=== PATIENT | female | born 1950 | race Caucasian/White ===

== ENCOUNTER 2023-05-14 13:49 | Outpatient (CLI) | payer MEDICARE, SELFPAY ==
--- NOTE | ~2023-05-14 | PE_ITS ---
EXAMINATION: PET skull to mid thigh DATE: 05/14/2023 16:06 INDICATION: Solitary pulmonary nodule. TECHNIQUE: Blood glucose level was 83 mg/dL. 8.868 mCi of 18-fluorodeoxyglucose (18-FDG) was administ ered i.v. Low dose computed tomography (CT) images were acquired from the base of the brain to the pr oximal thighs for attenuation correction and anatomic localization. Automated exposure control was em ployed. Dose-length product (DLP) was 489 mGy-cm. Positron emission tomography (PET) images were acqu ired in the same distribution. COMPARISON: None FINDINGS: Head/neck: There are no pathologically enlarged lymph nodes. There are changes of posterior fusion pr ocedure in cervical spine. Chest: There is moderate emphysema. A calcified left lung nodule and calcified mediastinal lymph node s are consistent with old granulomatous disease. There is a 13 mm nodule in right upper lobe with max imum SUV of 2.2. There are airspace opacities in right upper lobe with mild activity. There is a 14 m m nodule in left upper lobe with maximum SUV of 5.6. No pleural effusion. The heart size is normal. T here are coronary artery calcifications. No pericardial effusion. There is a right internal jugular p ort with tip at superior cavoatrial junction. There is mild chronic anterior wedging of multiple vert ebral bodies. There are healing anterior left rib fractures. Abdomen/pelvis/proximal thighs: Calcifications in the liver consistent with old granulomatous disease . The gallbladder, spleen, pancreas, and right adrenal gland are normal. There is thickening of left adrenal gland without increased activity, likely benign. The kidneys are normal. There are dilated lo ops of bowel. There are bilateral hip arthroplasties. There are no pathologically enlarged lymph node s. There is no ascites. There are changes of vertebroplasty at L1. IMPRESSION: 1. 14 mm nodule in left lung upper lobe with maximum SUV of 5.6, consistent with primary bronchogenic carcinoma. 2. 13 mm nodule in right lung upper lobe with mild activity with surrounding airspace opacities with mild activity. These findings may be malignancy and treatment changes. Correlate with treatment histo ry. Reviewed, dictated and finalized at location A. IMPRESSION: 1. 14 mm nodule in left lung upper lobe with maximum SUV of 5.6, consistent wit h primary bronchogenic carcinoma. 2. 13 mm nodule in right lung upper lobe with mild activity with surrounding ai rspace opacities with mild activity. These findings may be malignancy and treat ment changes. Correlate with treatment history.
[2023-05-14 14:23] LABS: Glucose Point of Care 83 mg/dl (65-105)
== END 2023-05-14 13:50 | disposition home or self-care (01) ==
PROVIDERS: PCP Family Medicine; Visit Provider Internal Medicine Hematology & Oncology
DX: C34.90 Malignant neoplasm of unspecified part of unspecified bronchus or lung (principal); R91.8 Other nonspecific abnormal finding of lung field
CPT/HCPCS: 78815; A9552

== ENCOUNTER 2023-05-22 14:42 | Outpatient (RCR) | payer MEDICARE, SELFPAY ==
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
--- NOTE | 2023-05-22 17:12 | OPREHPOC ---
Outpatient Therapy Plan of Care This is a Multidisciplinary Plan of Care that may contain components documented by all disciplines (PT, OT, and ST.) PT Problem 1 PT Problem #1 Knowledge Deficit PT Goal 1 Goal Pt to be IND with issued HEP Target Visit 8 PT Problem 2 PT Problem #2 Pain PT Goal 1 Goal Pt to report neck and shoulder pain no greater than 5/10 in the last week Target Visit 8 PT Goal 2 Goal Pt to report 50% improvement in overall symptoms Target Visit 8 PT Problem 3 PT Problem #3 Impaired Range of Motion PT Goal 1 Goal Pt to improve manolo shoulder active flexion and abduction ROM to 140 deg Target Visit 8 PT Goal 2 Goal Pt to improve cervical neck motion to 20 deg of total motion between flexion and extension Target Visit 8 PT Problem 4 PT Problem #4 Pain PT Goal 1 Goal Pt to report being able to tolerate being upright/ sitting for 12 hours without needing to lay down d /t pain. Target Visit 8
--- NOTE | 2023-05-26 10:30 | PCPTNOTE ---
Patient called to cancel due to falling this morning.
--- NOTE | 2023-06-01 14:21 | PCPTNOTE ---
Pt's daughter called and cancelled her mothers appt to take her to the MD.
--- NOTE | 2023-06-02 08:36 | PCPTNOTE ---
Patient's daughter states patient has been admitted to hospital and would call back once she is out. Patient's daughter wanted to cancel this weeks appointments due to medical status.
--- NOTE | 2023-06-09 08:56 | PTOPDC ---
Assessment and note entered by Ivan Limon, PT, DPT Evaluation Information Assessment Status Discharge - Pt Not Present Diagnosis cervicalgia, shoulder pain Subjective Information Pt is still admitted to the hospital. A new order will be needed upon discharge if OP therapy services are still indicated. Assessment PT Clinical Summary Pt complete her evaluation on 05/22/23 and has been unable to return to therapy since. She will be discharged at this time d/t a change in medical status.
== END 2023-06-09 10:13 | disposition home or self-care (01) ==
LOC: ANHGOSHPT 14:42
PROVIDERS: PCP Family Medicine; Visit Provider Family Medicine
DX: M54.2 Cervicalgia (principal); M25.519 Pain in unspecified shoulder
CPT/HCPCS: 97014; 97162; 99199; G0283

== ENCOUNTER 2023-06-01 13:23 | Outpatient (CLI) | payer MEDICARE, SELFPAY ==
[2023-06-01 13:37] LABS: Basophils Percent Auto 0.3 % (0.2-1.2); Eosinophils Percent Auto 0.3 % (0-4.4); Hematocrit 32.3 % (37.0-47.0); Hemoglobin 10.8 g/dL (12.0-15.0); Immature Granulocyte Absolute 0.01 K/mm3 (0.00-0.031); Immature Granulocyte Percent A 0.2 % (0-0.5); Lymphocytes Absolute Auto 0.76 K/mm3 (0.9-3.2); Mean Corpuscular HGB Conc 33.4 g/dl (32-36); Mean Corpuscular Hemoglobin 34.2 pg (26-34); Mean Corpuscular Volume 102.2 fl (80-100); Mean Platelet Volume 8.7 fl (7.4-10.4); Monocytes Absolute Auto 0.5 K/mm3 (0.1-0.6); Neutrophils Absolute Auto 4.6 K/mm3 (1.3-6.7); Neutrophils Percent Auto 78.2 % (45.5-73.1); Platelet Count Result 301 k/mm3 (150-375); Red Blood Count 3.16 M/mm3 (4.2-5.4); Red Cell Distribution Width 13.3 % (11.5-14.5); White Blood Count 5.9 K/mm3 (4.5-10.0)
[2023-06-01 13:44] LABS: Blood Urea Nitrogen 20 mg/dL (8-26); Carbon Dioxide 27 mmol/L (22-30); Chloride 98 mmol/L (98-109); Estimated Glomerular Filt Rate > 60; Glucose 73 mg/dL (70-105); Ionized Calcium (POC) 1.11 mmol/L (1.11-1.31); Sodium 139 mmol/L (138-146)
[2023-06-01 13:46] LABS: Potassium 2.4 mmol/L (3.5-4.9)
== END 2023-06-01 13:24 | disposition home or self-care (01) ==
LOC: ANHLAB 13:26
PROVIDERS: PCP Family Medicine; Visit Provider Internal Medicine Hematology & Oncology
DX: C34.90 Malignant neoplasm of unspecified part of unspecified bronchus or lung (principal)
CPT/HCPCS: 36415; 80047; 85025

== ENCOUNTER 2023-06-01 14:25 | Inpatient (IN) | payer MEDICARE, SELFPAY ==
--- NOTE | ~2023-06-01 | CT_ITS ---
EXAMINATION: CT abdomen pelvis w con DATE: 06/02/2023 09:22 INDICATION: Generalized abdominal pain. Diarrhea for 2 days. TECHNIQUE: Computed tomography (CT) of the abdomen and pelvis was performed with 95 CC Omnipaque 350 intravenous contrast. Automated exposure control and iterative reconstruction technique were employed . Exam dose: 282.21 mGy-cm total exam DLP. COMPARISON: 05/14/2023 PET scan FINDINGS: There is minimal discoid atelectasis or scarring at the lung bases. Normal heart size. No pericardial or pleural effusion. No hepatic, splenic, pancreatic or adrenal space-occupying mass lesion is evident. The gallbladder appears unremarkable. No gallbladder wall thickening or pericholecystic fluid or fat stranding. No bile duct or pancreatic duct dilatation. There is extensive calcification but normal caliber of the abdominal aorta and iliac and femoral theresa eliceo. There is probably calcification at the origins of the celiac, superior mesenteric and renal art eries. No intraperitoneal or retroperitoneal or pelvic mass lesion or adenopathy or ascites is noted. There are fluid levels in the small and large bowel and rectum, consistent with clinical history of d iarrhea, suggesting enterocolitis. No bowel obstruction, bowel wall thickening, pneumatosis or intrap eritoneal free air Multiple bilateral renal cysts measuring up to 11 mm. No urinary tract calculus or hydroureteronephrosis is detected. There is limited visualization of the pelvic structures due to extensive streak artifact from bilater al total hip arthroplasty. Old healed rib fractures. Status post vertebroplasty at moderately prominent compression fracture of L1. Multilevel degenerative disease of the lumbar spine, most severe at L2-3 and particularly L4-5 and L5 -S1. Left L4 pars interarticularis defect. Prominent degenerative change at the lumbar apophyseal joints. Old right pubic and right inferior pubic ramus fracture deformities. IMPRESSION: Air-fluid levels of small and large bowel and rectum, consistent with clinical presentat ion of diarrhea, suggesting enterocolitis; no bowel obstruction, bowel wall thickening, pneumatosis o r intraperitoneal free air Bilateral renal cysts Reviewed, dictated and finalized at Location A. Reviewed, dictated and finalized at location L. IMPRESSION: Air-fluid levels of small and large bowel and rectum, consistent w ith clinical presentation of diarrhea, suggesting enterocolitis; no bowel obstr uction, bowel wall thickening, pneumatosis or intraperitoneal free air Bilateral renal cysts
--- NOTE | ~2023-06-01 | XR_ITS ---
EXAMINATION: XR chest 1V portable DATE: 06/01/2023 20:58 INDICATION: Port placement. TECHNIQUE: A single frontal view of the chest was obtained on 2 radiographs. COMPARISON: PET/CT 05/14/2023 FINDINGS: A calcified left lung nodule is consistent with old granulomatous disease. There are airspa ce opacities in right upper lung zone. There are mild airspace opacities in left midlung zone. No ple ural effusion or pneumothorax. The heart size is normal. There is a right internal jugular port with tip in superior vena cava. There is are old healed left rib fractures. There are changes of vertebrop lasty in L1. IMPRESSION: 1. Airspace opacities in right upper lung zone and left midlung zone, which may be treatment changes. Reviewed, dictated and finalized at location E.
[2023-06-01 14:47] VITALS: BP 97/59; PULSE 77; RESP 18; TEMP 36.9; O2SAT 97
[2023-06-01 15:55] LABS: Basophils Percent Auto 0.3 % (0.2-1.2); Eosinophils Absolute Auto 0.1 K/mm3 (0-0.3); Eosinophils Percent Auto 0.9 % (0-4.4); Hematocrit 31.5 % (37.0-47.0); Hemoglobin 10.4 g/dL (12.0-15.0); Immature Granulocyte Absolute 0.02 K/mm3 (0.00-0.031); Immature Granulocyte Percent A 0.3 % (0-0.5); Lymphocytes Absolute Auto 0.86 K/mm3 (0.9-3.2); Mean Corpuscular Hemoglobin 34.1 pg (26-34); Mean Corpuscular Volume 103.3 fl (80-100); Monocytes Absolute Auto 0.6 K/mm3 (0.1-0.6); Monocytes Percent Auto 9.7 % (2.6-8.5); Neutrophils Absolute Auto 4.2 K/mm3 (1.3-6.7); Neutrophils Percent Auto 73.8 % (45.5-73.1); Platelet Count Result 290 k/mm3 (150-375); Red Blood Count 3.05 M/mm3 (4.2-5.4); Red Cell Distribution Width 13.3 % (11.5-14.5); White Blood Count 5.8 K/mm3 (4.5-10.0)
[2023-06-01 16:15] LABS: Alanine Aminotransferase 17 U/L (6-35); Albumin Level 2.9 g/dL (3.5-5.1); Alkaline Phosphatase 87 U/L (38-126); Aspartate Amino Transferase 33 U/L (14-36); Bilirubin,Total 0.2 mg/dL (0.2-1.3); Blood Urea Nitrogen 24 mg/dL (7-17); Carbon Dioxide 31 mmol/L (22-30); Estimated CRCL calculation 49 ml/min; Estimated Glomerular Filt Rate > 60; Glucose 67 mg/dL (65-110); Potassium 2.6 mmol/L (3.4-5.0); Sodium 133 mmol/L (137-145)
--- NOTE | 2023-06-01 16:15 | ECG_ITS ---
Measurements Intervals [place] Rate: 76 P: 85 KS: 153 QRS: 68 QRSD: 90 T: 70 QT: 415 QTc: 467 Interpretive Statements SINUS RHYTHM MILD NONSPECIFIC T-WAVE ABNORMALITY BORDERLINE ECG NO PREVIOUS ECG AVAILABLE FOR COMPARISON Electronically Signed On 06-02-2023 11:56:53 CDT by Bran Wright M.D.
[2023-06-01 16:21] LABS: Anion Gap 3 mmol/L (8-16); Chloride 99 mmol/L (98-107)
[2023-06-01 16:46] LABS: Magnesium 1.7 mg/dL (1.6-2.3)
--- NOTE | 2023-06-01 17:38 | ED.NAVMDI ---
HPI - Nausea/Vomiting/Diarrhea General Chief complaint: Recheck/Abnormal Lab/Rx Stated complaint: abnormal labs Time Seen by Provider: 06/01/23 17:30 History of Present Illness HPI Narrative: Pt presents with diarrhea for a couple of weeks. Pt seen at [facility] a week ago and had CT abd/pelvis and had low potassium them and was reated and discharged. Pt has continued to have diarrhea and had outpatient labs today showing low potassium and was sent to ER. Related Data Allergies Allergy/AdvReac Type Severity Reaction Status Date / Time No Known Allergies Allergy Verified 05/07/23 14:21 Review of Systems Review of Systems: All systems reviewed & are unremarkable except as noted in HPI and below PMFSH Social History Social History Smoking status: Former smoker Exam Const: General: healthy appearing Nutritional Appearance: well nourished Orientation/consciousness: patient oriented x3 Limitations: no limitations Resp: Effort & Inspection: normal respiratory effort Auscultation: clear to auscultation bilaterally Cardio: Rate: regular rate Rhythm: regular rhythm GI: GI Palp: Yes Soft to palpation Auscultation: normal bowel sounds Back/Spine/Pelvis: Back: no CVA tenderness Skin: General skin exam: pallor Rashes: no rashes Wounds: no wounds Neuro: General: patient oriented x3, moves all extremities and no focal motor deficits Cranial nerves: Yes Nystagmus not present Speech: normal speech Extrem: General: normal to inspection and no clubbing, cyanosis or edema Psych: Mental Status: mental status grossly normal Affect: normal affect Attitude: cooperative Course Vital Signs Vital signs: Vital Signs Temperature 98.5 F 06/01/23 14:47 Pulse Rate 77 06/01/23 14:47 Respiratory Rate 18 06/01/23 14:47 Blood Pressure 97/59 L 06/01/23 14:47 Pulse Oximetry 97 06/01/23 14:47 Oxygen Delivery Room Air 06/01/23 14:47 Temperature 97.4 F L 06/01/23 19:04 Pulse Rate 78 06/01/23 19:04 Respiratory Rate 17 06/01/23 19:04 Blood Pressure 112/100 H 06/01/23 19:04 Pulse Oximetry 98 06/01/23 19:04 Oxygen Delivery Room Air 06/01/23 17:42 MDM - Nausea/Vomiting/Diarrhea MDM Narrative Medical decision making narrative: pt presents with diarrhea and low potassium. pt seen at another ER last week and terated and discharged. repeat labs today revealed low potassium and was sent to ER . discussed with Gabriel López agrees to admit Lab Data 06/01/23 15:46 06/01/23 15:45 Labs: Lab Results 06/01/23 06/01/23 Range/Units 15:45 15:46 WBC 5.8 (4.5-10.0) K/mm3 RBC 3.05 L (4.2-5.4) M/mm3 Hgb 10.4 L (12.0-15.0) g/dL Hct 31.5 L (37.0-47.0) % MCV 103.3 H (80-100) fl MCH 34.1 H (26-34) pg MCHC 33.0 (32-36) g/dl RDW 13.3 (11.5-14.5) % Plt Count 290 (150-375) k/mm3 MPV 9.0 (7.4-10.4) fl Immature Gran % (Auto) 0.3 (0-0.5) % Neut % (Auto) 73.8 H (45.5-73.1) % Lymph % (Auto) 15.0 L (18.3-44.2) % Finney % (Auto) 9.7 H (2.6-8.5) % Eos % (Auto) 0.9 (0-4.4) % Baso % (Auto) 0.3 (0.2-1.2) % Lymph # (Auto) 0.86 L (0.9-3.2) K/mm3 Finney # (Auto) 0.6 (0.1-0.6) K/mm3 Eos # (Auto) 0.1 (0-0.3) K/mm3 Baso # (Auto) 0.0 (0.0-0.1) K/mm3 Abs Immat Gran (auto) 0.02 (0.00-0.031) K/mm3 Absolute Neuts (auto) 4.2 (1.3-6.7) K/mm3 Absolute Nucleated RBC 0.0 (0.0-0.012) K/mm3 Nucleated RBC % 0.0 (0.0-0.2) % Sodium 133 L (137-145) mmol/L Potassium 2.6 L* (3.4-5.0) mmol/L Chloride 99 (98-107) mmol/L Carbon Dioxide 31 H (22-30) mmol/L Anion Gap 3 L (8-16) mmol/L BUN 24 H (7-17) mg/dL Creatinine 0.60 L (0.7-1.0) mg/dL Estim Creat Clear Calc 49 ml/min Estimated GFR > 60 (59 - ) Glucose 67 (65-110) mg/dL Calcium 8.0 L (8.4-10.2) mg/dL Magnesium 1.7 (1.6-2.3) mg/dL Total Bilirubin 0.2 (0.2
[2023-06-01 17:42] VITALS: BP 122/67; PULSE 74; RESP 15; O2SAT 96
[2023-06-01] MEDS: KCL 20 MEQ/SW 100 ML 100 ML 50 MEQ IVPB (18:18)
[2023-06-01] MEDS: POTASSIUM CHLORIDE 20 MEQ ER TABLET 40 MEQ PO (18:19)
[2023-06-01] MEDS: SODIUM CHLORIDE 0.9% IV 1,000 ML 999 ML IV CONT (18:26)
--- NOTE | 2023-06-01 18:40 | PM.IMHP ---
H&P: HPI History of Present Illness Date/Time: 06/01/23 18:40 Chief Complaint: nausea and diarrhea Narrative: this is a 73-year-old female patient who recently moved to the area from [facility] to live with her son. Patient reports that she has had about 3-4 weeks persistent diarrhea and nausea. She reports that she has undergone radiation and chemotherapy for cancer that is in her lungs. Patient is a little confused to her past history as she said that she thought that it started somewhere in her abdomen and that after 3 sessions of radiation the abdominal problem could not be found again. Patient reports that today she went to see a new cancer doctor that she cannot recall who it was and they saw that her potassium was low and referred her to the emergency department for admission. Patient reports chills but no known fever. She reports a history of COPD states that she no longer smokes was using a vape instead but now has decided to quit after today. Review of Systems Review of Systems: All systems reviewed & are unremarkable except as noted in HPI and below PMFSH Past Medical History Medical History (Updated 06/01/23 @ 23:23 by Danial López APRN) COPD (chronic obstructive pulmonary disease) Hypertension Lung cancer Social History Social History Smoking status: Former smoker Tobacco type: cigarettes and e-cigarettes/vaping Alcohol intake: never Substance use: never Lack of Transportation: No Lack of Food: Never True Current Housing: I Have Housing Concerned About Future Housing: No Difficulty Paying Gas/Electric Bills: No Difficulty Paying for Meds: No Currently Unemployed: No Education: High School Diploma/GED Difficulty w/ Childcare or Family Care: No Spiritual care concerns: No Meds Home Medications and Allergies Home Medications Medication Instructions Recorded Confirmed Type famotidine 40 mg tablet 40 mg PO DAILY #90 tabs 05/07/23 06/01/23 Rx albuterol sulfate 90 mcg/actuation See Rx Instructions .Route 06/01/23 06/01/23 History aerosol inhaler (Ventolin HFA) .COMPLEX PRN rescue inhaler budesonide-formoterol HFA 160 See Rx Instructions .Route 06/01/23 06/01/23 History mcg-4.5 mcg/actuation aerosol .COMPLEX PRN rescue inhaler inhaler (Symbicort) clonazepam 1 mg tablet 1 mg PO BID 06/01/23 06/01/23 History hydrocodone 7.5 mg-acetaminophen 7.5 - 325 tablet PO Q4-6H 06/01/23 06/01/23 History 325 mg tablet levofloxacin 500 mg tablet 500 mg PO DAILY 06/01/23 06/01/23 History lisinopril 20 mg tablet 20 mg PO DAILY 06/01/23 06/01/23 History loperamide 2 mg capsule 2 mg PO Q4-6H PRN Diarrhea 06/01/23 06/01/23 History metronidazole 500 mg tablet 500 mg PO DAILY 06/01/23 06/01/23 History naloxone 4 mg/actuation nasal spray 4 mg intranasal PRN PRN Opiate 06/01/23 06/01/23 History Reversal ondansetron 4 mg disintegrating 4 mg PO Q4-6H PRN Nausea And 06/01/23 06/01/23 History tablet Vomiting pregabalin 75 mg capsule 75 mg PO BID 06/01/23 06/01/23 History tizanidine 2 mg tablet 2 mg PO BID 06/01/23 06/01/23 History tramadol 50 mg tablet 50 mg PO PRN PRN Pain (Scale Score 06/01/23 06/01/23 History 4-6) Allergies Allergy/AdvReac Type Severity Reaction Status Date / Time No Known Allergies Allergy Verified 05/07/23 14:21 Vital Signs Vital Signs - 24 hr 06/01/23 14:47 06/01/23 17:42 Temperature 36.9 C Pulse Rate 77 74 Respiratory Rate 18 15 Blood Pressure 97/59 L 122/67 Pulse Oximetry 97 96 Oxygen Delivery Room Air Room Air Exam Narrative: GENERAL: Generally well appearing, alert and oriented, in no apparent distress. She is pleasant and conversant in full sentences. HEENT: Pupils are equally round and briskly reactive to light. Extraocular muscles are intact. Oral mucous membranes are moist without lesions. NECK: The patient has no noted JVD. No adenopathy is appreciated. CHES
[2023-06-01] MEDS: ONDANSETRON INJ 4 MG/2 ML VIAL IV PUSH (19:00)
[2023-06-01 19:04] VITALS: BP 112/100; PULSE 78; RESP 17; TEMP 36.3; O2SAT 98
[2023-06-01] MEDS: fentaNYL CITRATE INJ (*CRX) 100 MCG/2 ML VIAL 25 MCG IV PUSH (20:06)
[2023-06-01 20:14] LABS: Influenza A QL RT-PCR Negative (Negative); Influenza B QL RT-PCR Negative (Negative); RSV RNA, RT-PCR Negative (Negative); SARS-CoV-2 RNA PCR Negative (Negative)
[2023-06-01 20:34] LABS: Toxigenic C. Diff NEGATIVE (NEGATIVE)
[2023-06-01] MEDS: SODIUM CHLORIDE 0.9% IV 1,000 ML 125 ML IV CONT (20:40)
[2023-06-01 21:17] VITALS: BP 132/83; PULSE 70; RESP 15; TEMP 36.6; O2SAT 95
--- NOTE | 2023-06-01 21:39 | ADMGEN ---
This patient, Hannah Howard, was admitted to [facility] Surg Room 306-02. Patient/family oriented to hospital policies and general routines including ID bracelet, bed and alarms, visiting hours, pain management, procedures, bathroom and other care routines, personal items, smoking policy, room service/diet, and visiting hours. Information on how to activate the Rapid Response Team has been discussed. Patient/Family are encouraged to report perceived risks to care and to ask questions if they do not understand what they are told or what they should do.
[2023-06-01 21:56] VITALS: BP 140/82; PULSE 75; RESP 20; TEMP 36.7; O2SAT 96; BMI 18.7
[2023-06-01] MEDS: clonazePAM (*CRX) 0.5 MG TABLET 1 MG PO (23:54)
[2023-06-01] MEDS: HYDROcodone/acetaminophen (*CRX) 7.5-325 MG TABLET 1 TAB PO (23:54)
[2023-06-01] MEDS: PREGABALIN (*CRX) 75 MG CAPSULE PO (23:55)
[2023-06-01] MEDS: TIZANIDINE HCL 2 MG TABLET PO (23:55)
[2023-06-01] MEDS: CENTRAL LINE FLUSH 10 ML IV PUSH (23:55)
[2023-06-02] VITALS (8 sets, daily range): BP systolic 90–117; BP diastolic 50–70; PULSE 70–75; RESP 16; TEMP 36.5–36.6; O2SAT 95–97; BMI 18.7
[2023-06-02] MEDS: LOPERAMIDE HCL 2 MG CAPSULE PO ×2 (00:12→04:45)
[2023-06-02] MEDS: KCL 40 MEQ/WATER 100 ML 100 ML 25 ML IVPB (00:12)
[2023-06-02] MEDS: ENOXAPARIN 40 MG/0.4 ML SYRINGE SUB-Q ×2 (01:23→21:07)
[2023-06-02] MEDS: SODIUM CHLORIDE 0.9% IV 1,000 ML 125 ML IV CONT (04:45)
[2023-06-02] MEDS: CENTRAL LINE FLUSH 10 ML IV PUSH ×3 (06:03→21:07)
[2023-06-02 06:12] LABS: Basophils Percent Auto 0.3 % (0.2-1.2); Eosinophils Absolute Auto 0.1 K/mm3 (0-0.3); Eosinophils Percent Auto 1.9 % (0-4.4); Hematocrit 30.4 % (37.0-47.0); Hemoglobin 9.8 g/dL (12.0-15.0); Immature Granulocyte Absolute 0.01 K/mm3 (0.00-0.031); Immature Granulocyte Percent A 0.2 % (0-0.5); Lymphocytes Absolute Auto 0.86 K/mm3 (0.9-3.2); Lymphocytes Percent Auto 14.5 % (18.3-44.2); Mean Corpuscular HGB Conc 32.2 g/dl (32-36); Mean Corpuscular Hemoglobin 33.7 pg (26-34); Mean Corpuscular Volume 104.5 fl (80-100); Mean Platelet Volume 8.9 fl (7.4-10.4); Monocytes Absolute Auto 0.5 K/mm3 (0.1-0.6); Monocytes Percent Auto 9.1 % (2.6-8.5); Neutrophils Absolute Auto 4.4 K/mm3 (1.3-6.7); Platelet Count Result 270 k/mm3 (150-375); Red Blood Count 2.91 M/mm3 (4.2-5.4); Red Cell Distribution Width 13.3 % (11.5-14.5); White Blood Count 5.9 K/mm3 (4.5-10.0)
[2023-06-02 06:24] LABS: Alanine Aminotransferase 15 U/L (6-35); Albumin Level 2.4 g/dL (3.5-5.1); Alkaline Phosphatase 77 U/L (38-126); Anion Gap 5 mmol/L (8-16); Aspartate Amino Transferase 28 U/L (14-36); Bilirubin,Total 0.2 mg/dL (0.2-1.3); Blood Urea Nitrogen 23 mg/dL (7-17); Calcium 7.2 mg/dL (8.4-10.2); Carbon Dioxide 26 mmol/L (22-30); Chloride 105 mmol/L (98-107); Estimated CRCL calculation 51 ml/min; Estimated Glomerular Filt Rate > 60; Glucose 50 mg/dL (65-110); Potassium 3.1 mmol/L (3.4-5.0); Sodium 136 mmol/L (137-145)
[2023-06-02 06:31] LABS: Glucose Point of Care 43 mg/dl (65-105)
[2023-06-02] MEDS: DEXTROSE 50% 25 GM/50 ML SYRINGE IV PUSH (06:37)
[2023-06-02 06:59] LABS: Glucose Point of Care 109 mg/dl (65-105)
[2023-06-02 07:59] LABS: Magnesium 1.6 mg/dL (1.6-2.3)
[2023-06-02] MEDS: clonazePAM (*CRX) 0.5 MG TABLET 1 MG PO ×2 (08:24→17:44)
[2023-06-02] MEDS: POTASSIUM CHLORIDE 20 MEQ ER TABLET 40 MEQ PO ×2 (08:24→21:07)
[2023-06-02] MEDS: TIZANIDINE HCL 2 MG TABLET PO ×2 (08:25→17:44)
[2023-06-02] MEDS: lisinopriL 20 MG TABLET PO (08:25)
[2023-06-02] MEDS: PREGABALIN (*CRX) 75 MG CAPSULE PO ×2 (08:26→17:44)
[2023-06-02] MEDS: FAMOTIDINE 20 MG TABLET 40 MG PO (08:26)
[2023-06-02 09:11] LABS: Folic Acid > 20.0 ng/mL (2.76->20)
[2023-06-02] MEDS: FLUTICASONE/SALMETEROL 115-21 MCG INHALER 1 PUFF 2 PUFF INHALATION ×2 (09:23→20:24)
[2023-06-02] MEDS: MAGNESIUM SULF 2 GM/WATER 50ML 2 GM/50 ML BAG IVPB (09:28)
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
[2023-06-02 13:45] LABS: Magnesium 2.3 mg/dL (1.6-2.3); Potassium 2.8 mmol/L (3.4-5.0)
[2023-06-02] MEDS: POTASSIUM CHLORIDE INJ 40 MEQ in SODIUM CHLORIDE 0.9% IV 500 ML 130 MEQ IVPB (14:36)
[2023-06-02] MEDS: SODIUM CHLORIDE 0.9% IV 1,000 ML 70 ML IV CONT (19:53)
[2023-06-02] MEDS: HYDROcodone/acetaminophen (*CRX) 7.5-325 MG TABLET 1 TAB PO (20:04)
[2023-06-02 20:24] LABS: Potassium 3.4 mmol/L (3.4-5.0)
[2023-06-02 21:07] LABS: IFOB Positive Control Positive; Immunochemical Fecal Occult Bl Negative (N)
[2023-06-03] MEDS: HYDROcodone/acetaminophen (*CRX) 7.5-325 MG TABLET 1 TAB PO (03:30)
[2023-06-03] MEDS: LOPERAMIDE HCL 2 MG CAPSULE PO ×2 (03:31→23:19)
[2023-06-03 06:00] VITALS: BP 141/67; PULSE 75; RESP 18; TEMP 36.3; O2SAT 98
[2023-06-03] MEDS: CENTRAL LINE FLUSH 10 ML IV PUSH ×2 (06:22→13:00)
[2023-06-03 06:29] LABS: Basophils Percent Auto 0.3 % (0.2-1.2); Eosinophils Absolute Auto 0.1 K/mm3 (0-0.3); Eosinophils Percent Auto 1.1 % (0-4.4); Hematocrit 32.6 % (37.0-47.0); Hemoglobin 10.5 g/dL (12.0-15.0); Immature Granulocyte Absolute 0.01 K/mm3 (0.00-0.031); Immature Granulocyte Percent A 0.2 % (0-0.5); Lymphocytes Absolute Auto 0.69 K/mm3 (0.9-3.2); Lymphocytes Percent Auto 10.9 % (18.3-44.2); Mean Corpuscular HGB Conc 32.2 g/dl (32-36); Mean Corpuscular Hemoglobin 34.1 pg (26-34); Mean Corpuscular Volume 105.8 fl (80-100); Mean Platelet Volume 8.9 fl (7.4-10.4); Monocytes Absolute Auto 0.5 K/mm3 (0.1-0.6); Neutrophils Percent Auto 79.5 % (45.5-73.1); Platelet Count Result 295 k/mm3 (150-375); Red Blood Count 3.08 M/mm3 (4.2-5.4); Red Cell Distribution Width 13.8 % (11.5-14.5); White Blood Count 6.3 K/mm3 (4.5-10.0)
[2023-06-03 06:39] LABS: Alanine Aminotransferase 14 U/L (6-35); Albumin Level 2.3 g/dL (3.5-5.1); Alkaline Phosphatase 78 U/L (38-126); Anion Gap 2 mmol/L (8-16); Aspartate Amino Transferase 22 U/L (14-36); Bilirubin,Total 0.1 mg/dL (0.2-1.3); Blood Urea Nitrogen 19 mg/dL (7-17); Calcium 7.4 mg/dL (8.4-10.2); Carbon Dioxide 24 mmol/L (22-30); Chloride 109 mmol/L (98-107); Estimated CRCL calculation 51 ml/min; Estimated Glomerular Filt Rate > 60; Glucose 73 mg/dL (65-110); Potassium 3.4 mmol/L (3.4-5.0); Sodium 135 mmol/L (137-145)
[2023-06-03 07:24] LABS: Platelet Estimate Adequate (Adequate)
[2023-06-03 07:25] LABS: Anisocytosis 1+ (NORMAL); Macrocytosis 1+ (NORMAL); Schistocytes None Seen (NORMAL)
--- NOTE | 2023-06-03 07:51 | P.CDI_ITS ---
CDI Query Clarification Request BMI 18.7 Nutritional Diagnostic Statement Moderate protein calorie malnutrition related to inadequate energy intake as evidenced by patient report of reduced intake for greater than 1 month, -23% wt loss x 1 year. Please refer to the comprehensive nutrition assessment for further information. Please clarify severity of protein calorie malnutrition if known: * Mild * Moderate * Severe * Other/ Unspecified
[2023-06-03] MEDS: FLUTICASONE/SALMETEROL 115-21 MCG INHALER 1 PUFF 2 PUFF INHALATION ×2 (08:30→20:33)
[2023-06-03] MEDS: FAMOTIDINE 20 MG TABLET 40 MG PO (08:37)
[2023-06-03] MEDS: TIZANIDINE HCL 2 MG TABLET PO ×2 (08:37→16:27)
[2023-06-03] MEDS: PREGABALIN (*CRX) 75 MG CAPSULE PO ×2 (08:37→16:27)
[2023-06-03] MEDS: lisinopriL 20 MG TABLET PO (08:37)
[2023-06-03] MEDS: POTASSIUM CHLORIDE 20 MEQ ER TABLET 40 MEQ PO (08:37)
[2023-06-03] MEDS: clonazePAM (*CRX) 0.5 MG TABLET 1 MG PO ×2 (08:37→16:27)
[2023-06-03] MEDS: SODIUM CHLORIDE 0.9% IV 1,000 ML 70 ML IV CONT (10:23)
[2023-06-03] MEDS: ONDANSETRON INJ 4 MG/2 ML VIAL IV PUSH ×2 (10:25→16:34)
[2023-06-03 14:00] VITALS: BP 106/67; PULSE 80; RESP 18; TEMP 36.4; O2SAT 97
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
[2023-06-03] MEDS: METOCLOPRAMIDE HCL INJ 10 MG/2 ML VIAL IV PUSH (15:05)
--- NOTE | 2023-06-03 17:09 | PM.IMPN ---
Progress Note: A&P Assessment and Plan (1) Acute hypokalemia: Code(s): E87.6 - Hypokalemia Status: Acute Assessment and Plan: Potassium was 2.6 on admission. Patient presents with diarrhea so probably the cause. She received IV replacement. Repeat potassium today is 3.4. Continue oral placement. Magnesium level is 2.0. Continue to follow and replace as necessary. (2) Diarrhea: Code(s): R19.7 - Diarrhea, unspecified Status: Acute Assessment and Plan: Patient has had diarrhea for the past 2 weeks. Last colonoscopy 4 years ago was clear. She has a hx of polypectomy. Hx of XRT mostly to the left lung. She was scheduled see GI but was unable to get appointment yet. No recent antibiotics. C diff was negative. CT abdomen pelvis shows air-fluid levels of small and large bowel to the rectum. This is consistent with diarrhea possibly enterocolitis. There is no bowel obstruction, bowel wall thickening, pneumatosis or free air. Stool culture pending. GI consulted and appreciate their input. SLIVF (3) Nausea and vomiting in adult: Code(s): R11.2 - Nausea with vomiting, unspecified Status: Acute Assessment and Plan: Patient with nausea for the past few weeks. Suspect associated with her diarrhea. Nausea comes on with the abdominal cramping. As above (4) Moderate protein-calorie malnutrition: Code(s): E44.0 - Moderate protein-calorie malnutrition Status: Acute Assessment and Plan: Patient with moderate protein calorie malnutrition related to inadequate energy intake as evidenced by patient's reported reduced intake for greater than 1 month and -23% weight loss x1 year. Supplements started. (5) Anxiety: Code(s): F41.9 - Anxiety disorder, unspecified Status: Acute Assessment and Plan: Mood stable. Continue Klonopin. Monitor for over-sedation. (6) Lung cancer: Code(s): C34.90 - Malignant neoplasm of unspecified part of unspecified bronchus or lung Status: Acute Assessment and Plan: Patient has a history of lung cancer. She had treatment in [place] including radiation and chemotherapy. The radiation treatment was mostly to the left lung. Chest x-ray shows right upper lobe and left mid lung field probable radiation changes. PET scan from 05/14/2023 shows 1.4cm nodule left upper lobe and a 1.3 cm nodule in the right upper lobe. These findings may be malignancy and treatment changes. Patient is followed by Dr Govea locally. (7) Hypertension: Code(s): I10 - Essential (primary) hypertension Status: Acute Assessment and Plan: Patient's blood pressure was reviewed on 06/03 Blood pressure remains well controlled. Will continue to monitor (8) COPD (chronic obstructive pulmonary disease): Code(s): J44.9 - Chronic obstructive pulmonary disease, unspecified Status: Acute Assessment and Plan: Stable. No wheezing on exam but has distant breath sounds. Continue Advair. Plan DVT prophylaxis-Lovenox Code status-DNR Subjective Date/time seen: 06/03/23 17:09 Interval history: 73yo female with lung CA, HTN and COPD here for nausea and diarrhea She had BM x3-4 today. Still having liquid stools. No black or red stools. Stools were black early on prior to admission. No CP or SOB. Eating and tolerating it. Has nausea associated with crampy abdominal pain priro to having a BM but no vomiting. Exam Narrative: AF 97.6 106/67 80 18 97% ra Gen - NARD Chest -CTA bilaterally CV - RRR S1/S2 Abd - Soft, NT/ND, Positive BS Ext - no pedal edema Psych - Nml mood and affect Skin - Warm and dry Objective Data Vital Signs Vital Signs: Vital Signs - 24 hr 06/02/23 20:25 06/02/23 19:50 06/02/23 22:00 Temperature 97.9 F Pulse Rate 75 Respiratory Rate 16 Blood Pressure 109/62 Pulse Oximetry 97 96 Oxygen Delivery Room Air Room
[2023-06-03] MEDS: ENOXAPARIN 40 MG/0.4 ML SYRINGE SUB-Q (20:22)
[2023-06-03 22:00] VITALS: BP 106/74; PULSE 74; RESP 18; TEMP 36.1; O2SAT 97
[2023-06-04] MEDS: traMADol HCL (*CRX) 50 MG TABLET PO (02:16)
[2023-06-04] MEDS: LOPERAMIDE HCL 2 MG CAPSULE PO (05:24)
[2023-06-04] MEDS: ONDANSETRON INJ 4 MG/2 ML VIAL IV PUSH ×3 (05:24→21:19)
[2023-06-04] MEDS: CENTRAL LINE FLUSH 10 ML IV PUSH ×3 (05:25→21:21)
[2023-06-04 06:00] VITALS: BP 128/77; PULSE 75; RESP 14; TEMP 35.7; O2SAT 96
[2023-06-04 06:05] LABS: Basophils Percent Auto 0.2 % (0.2-1.2); Eosinophils Absolute Auto 0.1 K/mm3 (0-0.3); Eosinophils Percent Auto 0.9 % (0-4.4); Hematocrit 30.4 % (37.0-47.0); Hemoglobin 9.8 g/dL (12.0-15.0); Immature Granulocyte Absolute 0.02 K/mm3 (0.00-0.031); Immature Granulocyte Percent A 0.4 % (0-0.5); Lymphocytes Absolute Auto 0.81 K/mm3 (0.9-3.2); Lymphocytes Percent Auto 14.7 % (18.3-44.2); Mean Corpuscular HGB Conc 32.2 g/dl (32-36); Mean Corpuscular Hemoglobin 33.8 pg (26-34); Mean Corpuscular Volume 104.8 fl (80-100); Mean Platelet Volume 8.8 fl (7.4-10.4); Monocytes Absolute Auto 0.5 K/mm3 (0.1-0.6); Monocytes Percent Auto 8.9 % (2.6-8.5); Neutrophils Absolute Auto 4.1 K/mm3 (1.3-6.7); Neutrophils Percent Auto 74.9 % (45.5-73.1); Platelet Count Result 242 k/mm3 (150-375); Red Cell Distribution Width 13.4 % (11.5-14.5); White Blood Count 5.5 K/mm3 (4.5-10.0)
[2023-06-04 06:19] LABS: Alanine Aminotransferase 13 U/L (6-35); Albumin Level 2.1 g/dL (3.5-5.1); Alkaline Phosphatase 74 U/L (38-126); Anion Gap 3 mmol/L (8-16); Aspartate Amino Transferase 23 U/L (14-36); Bilirubin,Total < 0.1 mg/dL (0.2-1.3); Blood Urea Nitrogen 17 mg/dL (7-17); Calcium 7.3 mg/dL (8.4-10.2); Carbon Dioxide 23 mmol/L (22-30); Chloride 109 mmol/L (98-107); Estimated CRCL calculation 51 ml/min; Estimated Glomerular Filt Rate > 60; Glucose 80 mg/dL (65-110); Magnesium 1.7 mg/dL (1.6-2.3); Phosphorus 2.8 mg/dL (2.5-4.5); Sodium 135 mmol/L (137-145)
[2023-06-04 08:09] VITALS: PULSE 77; O2SAT 97
[2023-06-04] MEDS: FLUTICASONE/SALMETEROL 115-21 MCG INHALER 1 PUFF 2 PUFF INHALATION ×2 (08:09→20:39)
[2023-06-04] MEDS: FAMOTIDINE 20 MG TABLET 40 MG PO (09:25)
[2023-06-04] MEDS: lisinopriL 20 MG TABLET PO (09:25)
[2023-06-04] MEDS: TIZANIDINE HCL 2 MG TABLET PO ×2 (09:25→17:17)
[2023-06-04] MEDS: PREGABALIN (*CRX) 75 MG CAPSULE PO ×2 (09:25→17:17)
[2023-06-04] MEDS: MAGNESIUM SULF 2 GM/WATER 50ML 2 GM/50 ML BAG IVPB (09:25)
[2023-06-04] MEDS: POTASSIUM CHLORIDE 20 MEQ ER TABLET 40 MEQ PO (09:25)
[2023-06-04] MEDS: clonazePAM (*CRX) 0.5 MG TABLET 1 MG PO ×2 (09:25→17:17)
--- NOTE | 2023-06-04 11:58 | WPDGIPROGNO ---
Progress Note: A&P Assessment and Plan (1) Diarrhea: Code(s): R19.7 - Diarrhea, unspecified Status: Acute Assessment and Plan: persistent for several weeks will proceed with colonoscopy tomorrow to assess if colitis, consider also random colon bx (2) Nausea and vomiting in adult: Code(s): R11.2 - Nausea with vomiting, unspecified Status: Acute Assessment and Plan: better will proceed with egd to assess if gastritis, etc (3) Moderate protein-calorie malnutrition: Code(s): E44.0 - Moderate protein-calorie malnutrition Status: Acute Assessment and Plan: weight loss and decrease appetite also presentation with low K monitor (4) Lung cancer: Code(s): C34.90 - Malignant neoplasm of unspecified part of unspecified bronchus or lung Status: Acute Assessment and Plan: by oncologist (5) Acute hypokalemia: Code(s): E87.6 - Hypokalemia Status: Acute Subjective Date/time seen: 06/04/23 11:58 Interval history: no major changes, still with diarrhea Review of Systems Review of Systems: All systems reviewed & are unremarkable except as noted in HPI and below Exam Const: General: comfortable Other: thin, pleasant HENMT: Face/Nose/Sinus: Normal nares present Eyes: Sclera: sclerae normal Neck: Neck: supple Chest: Other: port in chest Resp: Effort & Inspection: normal respiratory effort Cardio: Rate: regular rate GI: GI Palp: Yes Soft to palpation, No Tenderness to palpation present (GI) and No Guarding due to palpation present (GI) Auscultation: normal bowel sounds Skin: General skin exam: no rashes or lesions noted Neuro: Speech: normal speech Motor exam (neuro): 5/5 motor strength present throughout Extrem: General: normal to inspection Psych: Affect: normal affect Objective Data Vital Signs Vital Signs: Vital Signs - 24 hr 06/03/23 14:00 06/03/23 20:00 06/03/23 22:00 Temperature 97.6 F 97 F L Pulse Rate 80 74 Respiratory Rate 18 18 Blood Pressure 106/67 106/74 Pulse Oximetry 97 97 Oxygen Delivery Room Air 06/04/23 06:00 06/04/23 08:09 06/04/23 08:00 Temperature 96.3 F L Pulse Rate 75 77 Respiratory Rate 14 Blood Pressure 128/77 Pulse Oximetry 96 97 Oxygen Delivery Room Air Room Air Intake/Output Intake/Output: Intake & Output 06/01/23 06/02/23 06/03/23 06/04/23 23:59 23:59 23:59 23:59 Intake Total 1100 3168 2190 250 Output Total 300 Balance 1100 3168 2190 -50 Meds/Results Medications: Active Medications Generic Name Dose Route Start Last Admin Trade Name Freq PRN Reason Stop Dose Admin Acetaminophen 650 mg 06/01/23 23:26 Acetaminophen 325 Mg Tablet PO Q4H PRN Mild Pain (1-3) or Fever Hydrocodone Bitart/Acetaminophen 1 tab 06/01/23 23:27 06/03/23 03:30 Hydrocodone/Acetaminophen (*Crx) 7.5-325 Mg Tablet PO 1 tab Q4H PRN Administration Pain Rated 7-10 Albuterol 2 puff 06/01/23 23:52 Albuterol Sulfate (*Sp) Aerosol 1 Puff INHALATION Q4H PRN Shortness Of Breath Bisacodyl 2 mg 06/04/23 17:00 Bisacodyl 5 Mg Tablet Ec PO 06/04/23 17:01 ONCE ONE Clonazepam 1 mg 06/01/23 23:25 06/04/23 09:25 Clonazepam (*Crx) 0.5 Mg Tablet PO 1 mg BID MARIELENA Administration Dextrose 12.5 gm 06/02/23 07:23 Dextrose 50% 25 Gm/50 Ml Syringe IV PUSH PRN PRN Hypoglycemia Protocol Enoxaparin Sodium 40 mg 06/02/23 21:00 06/03/23 20:22 Enoxaparin 40 Mg/0.4 Ml Syringe SUB-Q 40 mg HS MARIELENA Administration Famotidine 40 mg 06/02/23 09:00 06/04/23 09:25 Famotidine 20 Mg Tablet PO 40 mg DAILY MARIELENA Administration Glucagon 1 mg 06/02/23 07:23 Glucagon For Inj 1 Mg Vial IM PRN PRN Hypoglycemia Protocol Glucose 15 gm 06/02/23 07:23 Glucose Oral Gel 15 Gm Of Glucse In 37.5 Gm Tube PO PRN PRN Hypoglycemia Protocol Heparin Sod
[2023-06-04] MEDS: POTASSIUM CHLORIDE 20 MEQ ER TABLET PO (12:54)
--- NOTE | 2023-06-04 14:11 | PM.IMPN ---
Progress Note: A&P Assessment and Plan (1) Acute hypokalemia: Code(s): E87.6 - Hypokalemia Status: Acute Assessment and Plan: Potassium was 2.6 on admission. Patient presents with diarrhea so probably the cause. She received IV replacement. Repeat potassium today is 3.0. Continue oral placement. Magnesium level is 1.7 and replacement ordered. Continue to follow and replace as necessary. (2) Diarrhea: Code(s): R19.7 - Diarrhea, unspecified Status: Acute Assessment and Plan: Patient has had diarrhea for the past 2 weeks. Last colonoscopy 4 years ago was clear. She has a hx of polypectomy. Hx of XRT mostly to the left lung. She was scheduled see GI but was unable to get appointment yet. No recent antibiotics. C diff was negative. CT abdomen pelvis shows air-fluid levels of small and large bowel to the rectum. This is consistent with diarrhea possibly enterocolitis. There is no bowel obstruction, bowel wall thickening, pneumatosis or free air. Stool culture pending. Consider bacterial overgrowth or related to chemo. XRT seems to have been more focused on lung (supported by CXR findings) GI consulted and appreciate their input. check ceilac panel. Will discuss with GI about rifaximin or cholestyramine. (3) Nausea and vomiting in adult: Code(s): R11.2 - Nausea with vomiting, unspecified Status: Acute Assessment and Plan: Patient with nausea for the past few weeks related tot he stomach cramping. Suspect associated with her diarrhea. As above Zofran available prn (4) Moderate protein-calorie malnutrition: Code(s): E44.0 - Moderate protein-calorie malnutrition Status: Acute Assessment and Plan: Patient with moderate protein calorie malnutrition related to inadequate energy intake as evidenced by patient's reported reduced intake for greater than 1 month and -23% weight loss x1 year. Continue supplements (5) Anxiety: Code(s): F41.9 - Anxiety disorder, unspecified Status: Acute Assessment and Plan: Mood stable. Continue Klonopin. Monitor for over-sedation. (6) Lung cancer: Code(s): C34.90 - Malignant neoplasm of unspecified part of unspecified bronchus or lung Status: Acute Assessment and Plan: Patient has a history of lung cancer. She had treatment in [place] including radiation and chemotherapy. The radiation treatment was mostly to the left lung. Chest x-ray shows right upper lobe and left mid lung field probable radiation changes. PET scan from 05/14/2023 shows 1.4cm nodule left upper lobe and a 1.3 cm nodule in the right upper lobe. These findings may be malignancy and treatment changes. Patient is followed by Dr Govea locally. (7) Hypertension: Code(s): I10 - Essential (primary) hypertension Status: Acute Assessment and Plan: Patient's blood pressure was reviewed on 06/04 Blood pressure remains well controlled. Will continue to monitor (8) COPD (chronic obstructive pulmonary disease): Code(s): J44.9 - Chronic obstructive pulmonary disease, unspecified Status: Acute Assessment and Plan: Stable. No wheezing on exam but has distant breath sounds. Continue Advair. Plan DVT prophylaxis - Lovenox Code status - DNR Subjective Date/time seen: 06/04/23 14:11 Interval history: 73yo female with lung CA, HTN and COPD here for nausea and diarrhea. Not feeling well. Was hungry but having diarrhea when she starts to eat. Multiple BMs. No CP or SOB. Still with nausea better with Zofran. Exam Narrative: AF 96.3 128/77 77 14 97% ra Gen - NARD Chest -CTA bilaterally CV - RRR S1/S2 Abd - Soft, mild diffuse tenderness Ext - no pedal edema Psych - Nml mood and affect but appears tired Skin - Warm and dry Objective Data Vital Signs Vital Signs: Vital Signs - 24 hr 06/03/23 20:00 06/03/23 22:00 06/04/23
[2023-06-04 15:20] LABS: Potassium 3.3 mmol/L (3.4-5.0)
[2023-06-04] MEDS: BISACODYL 5 MG TABLET EC 10 MG PO (17:17)
[2023-06-04] MEDS: polyethylene glycoL 3350 238 GM BOTTLE PO (19:00)
[2023-06-04 20:40] VITALS: PULSE 77; RESP 16
[2023-06-04] MEDS: ENOXAPARIN 40 MG/0.4 ML SYRINGE SUB-Q (21:19)
[2023-06-04] MEDS: HYDROcodone/acetaminophen (*CRX) 7.5-325 MG TABLET 1 TAB PO (21:19)
[2023-06-04 22:00] VITALS: BP 116/71; PULSE 73; RESP 14; TEMP 36.9; O2SAT 97
[2023-06-05] VITALS (17 sets, daily range): BP systolic 63–135; BP diastolic 36–80; PULSE 73–85; RESP 14–21; TEMP 35.7–37.1; O2SAT 93–99
[2023-06-05] MEDS: METOCLOPRAMIDE HCL INJ 10 MG/2 ML VIAL IV PUSH ×2 (00:49→08:58)
[2023-06-05] MEDS: MAGNESIUM CITRATE 300 ML BTL PO (02:17)
[2023-06-05] MEDS: HYDROcodone/acetaminophen (*CRX) 7.5-325 MG TABLET 1 TAB PO ×3 (02:17→20:23)
[2023-06-05] MEDS: ONDANSETRON INJ 4 MG/2 ML VIAL IV PUSH (06:04)
[2023-06-05] MEDS: CENTRAL LINE FLUSH 10 ML IV PUSH ×2 (06:30→20:23)
[2023-06-05 07:38] LABS: Albumin Level 2.5 g/dL (3.5-5.1); Anion Gap 3 mmol/L (8-16); Blood Urea Nitrogen 15 mg/dL (7-17); Calcium 7.8 mg/dL (8.4-10.2); Carbon Dioxide 24 mmol/L (22-30); Chloride 107 mmol/L (98-107); Estimated CRCL calculation 60 ml/min; Estimated Glomerular Filt Rate > 60; Glucose 81 mg/dL (65-110); Magnesium 1.8 mg/dL (1.6-2.3); Phosphorus 3.3 mg/dL (2.5-4.5); Potassium 2.9 mmol/L (3.4-5.0); Sodium 134 mmol/L (137-145)
[2023-06-05] MEDS: FLUTICASONE/SALMETEROL 115-21 MCG INHALER 1 PUFF 2 PUFF INHALATION ×2 (07:56→21:17)
[2023-06-05 08:12] LABS: Basophils Percent Auto 0.3 % (0.2-1.2); Eosinophils Percent Auto 0.7 % (0-4.4); Hematocrit 36.7 % (37.0-47.0); Hemoglobin 11.8 g/dL (12.0-15.0); Immature Granulocyte Absolute 0.01 K/mm3 (0.00-0.031); Immature Granulocyte Percent A 0.2 % (0-0.5); Lymphocytes Absolute Auto 0.66 K/mm3 (0.9-3.2); Lymphocytes Percent Auto 10.9 % (18.3-44.2); Mean Corpuscular HGB Conc 32.2 g/dl (32-36); Mean Corpuscular Hemoglobin 33.7 pg (26-34); Mean Corpuscular Volume 104.9 fl (80-100); Mean Platelet Volume 9.5 fl (7.4-10.4); Monocytes Absolute Auto 0.4 K/mm3 (0.1-0.6); Monocytes Percent Auto 6.3 % (2.6-8.5); Neutrophils Absolute Auto 4.9 K/mm3 (1.3-6.7); Neutrophils Percent Auto 81.6 % (45.5-73.1); Platelet Count Result 263 k/mm3 (150-375); Red Cell Distribution Width 13.4 % (11.5-14.5)
[2023-06-05] MEDS: POTASSIUM CHLORIDE INJ 40 MEQ in SODIUM CHLORIDE 0.9% IV 500 ML 130 MEQ IVPB (08:49)
[2023-06-05] MEDS: FAMOTIDINE 20 MG TABLET 40 MG PO (08:51)
[2023-06-05] MEDS: MAGNESIUM SULF 2 GM/WATER 50ML 2 GM/50 ML BAG IVPB (08:51)
[2023-06-05] MEDS: PREGABALIN (*CRX) 75 MG CAPSULE PO ×2 (08:51→18:27)
[2023-06-05] MEDS: clonazePAM (*CRX) 0.5 MG TABLET 1 MG PO ×2 (08:51→18:27)
[2023-06-05] MEDS: TIZANIDINE HCL 2 MG TABLET PO ×2 (08:52→18:27)
[2023-06-05] MEDS: traMADol HCL (*CRX) 50 MG TABLET PO (08:58)
--- NOTE | 2023-06-05 09:29 | PM.IMPN ---
Progress Note: A&P Assessment and Plan (1) Acute hypokalemia: Code(s): E87.6 - Hypokalemia Status: Acute Assessment and Plan: Potassium was 2.6 on admission. Patient presents with diarrhea so probably the cause. She received IV replacement. Potassium better but dropped to 2.9 today felt related to the bowel prep. Replace potassium. Magnesium level is 1.8 and replacement ordered. Continue to follow and replace as necessary. (2) Diarrhea: Code(s): R19.7 - Diarrhea, unspecified Status: Acute Assessment and Plan: Patient has had diarrhea for the past 2 weeks. Last colonoscopy 4 years ago was clear. She has a hx of polypectomy. Hx of XRT mostly to the left lung. She was scheduled see GI but was unable to get appointment yet. No recent antibiotics. C diff was negative. Stool culture negative. CT abdomen pelvis shows air-fluid levels of small and large bowel to the rectum. This is consistent with diarrhea possibly enterocolitis. There is no bowel obstruction, bowel wall thickening, pneumatosis or free air. Consider bacterial overgrowth or related to chemo. XRT seems to have been more focused on lung (supported by CXR findings) GI consulted and appreciate their input. Plan for EGD/Colonoscopy today. Consider rifaximin or cholestyramine depending on the findings today. (3) Nausea and vomiting in adult: Code(s): R11.2 - Nausea with vomiting, unspecified Status: Acute Assessment and Plan: Patient with nausea for the past few weeks related tot he stomach cramping. Suspect associated with her diarrhea. As above Zofran available prn (4) Moderate protein-calorie malnutrition: Code(s): E44.0 - Moderate protein-calorie malnutrition Status: Acute Assessment and Plan: Patient with moderate protein calorie malnutrition related to inadequate energy intake as evidenced by patient's reported reduced intake for greater than 1 month and -23% weight loss x1 year. Continue supplements (5) Anxiety: Code(s): F41.9 - Anxiety disorder, unspecified Status: Acute Assessment and Plan: Mood stable. Continue Klonopin. Monitor for over-sedation. (6) Lung cancer: Code(s): C34.90 - Malignant neoplasm of unspecified part of unspecified bronchus or lung Status: Acute Assessment and Plan: Patient has a history of lung cancer. She had treatment in [place] including radiation and chemotherapy. The radiation treatment was mostly to the left lung. Chest x-ray shows right upper lobe and left mid lung field probable radiation changes. PET scan from 05/14/2023 shows 1.4cm nodule left upper lobe and a 1.3 cm nodule in the right upper lobe. These findings may be malignancy and treatment changes. Patient is followed by Dr Govea locally. (7) Hypertension: Code(s): I10 - Essential (primary) hypertension Status: Acute Assessment and Plan: Patient's blood pressure was reviewed on 06/05 Blood pressure remains well controlled. Will continue to monitor (8) COPD (chronic obstructive pulmonary disease): Code(s): J44.9 - Chronic obstructive pulmonary disease, unspecified Status: Acute Assessment and Plan: Stable. No wheezing on exam. Continue Advair. Plan DVT prophylaxis - Lovenox Code status - DNR Subjective Date/time seen: 06/05/23 09:29 Interval history: 73yo female with lung CA, HTN and COPD here for nausea and diarrhea. Still having nausea. Slept poorly due to bowel prep. Stool is clear yellow. No CP or SOB. Exam Narrative: AF 98.7 110/68 81 14 96% ra Gen - NARD Chest -CTA bilaterally. Port accessed in the right upper chest CV - RRR S1/S2 Abd - Soft, NT/ND, +BS Ext - no pedal edema Psych - Nml mood and affect but appears tired Skin - Warm and dry Objective Data Vital Signs Vital Signs: Vital Signs - 24 hr 06/04/23 20:40 06/04/23 20
[2023-06-05] MEDS: LACTATED RINGERS 1,000 ML 150 ML IV CONT (13:37)
--- NOTE | 2023-06-05 13:51 | WPDANESEPPF ---
Anes - Initial Pre Proc Eval Procedure: Operation Date: 06/05/23 14:30 Proposed Procedures p Esophagogastroduodenoscopy & Colonoscopy - Yayo Wang MD Date/Time: 06/05/23 13:51 Surgeon: Rony Jordan MD Pre Op Diagnosis: Hypokalemia Patient Data Age: 73 Gender: F Height: 1.57 m Weight: 46.5 kg Last Vital Signs Temp 97 F L 06/05/23 13:33 Pulse 85 06/05/23 13:33 Resp 20 06/05/23 13:33 BP 135/75 06/05/23 13:33 Pulse Ox 97 06/05/23 13:33 O2 Del Method Room Air 06/05/23 13:33 Allergies Allergy/AdvReac Type Severity Reaction Status Date / Time No Known Allergies Allergy Verified 06/05/23 13:30 Home Medications Medication Instructions Recorded Confirmed Type famotidine 40 mg tablet 40 mg PO DAILY #90 tabs 05/07/23 06/01/23 Rx albuterol sulfate 90 mcg/actuation See Rx Instructions .Route 06/01/23 06/01/23 History aerosol inhaler (Ventolin HFA) .COMPLEX PRN rescue inhaler budesonide-formoterol HFA 160 See Rx Instructions .Route 06/01/23 06/01/23 History mcg-4.5 mcg/actuation aerosol .COMPLEX PRN rescue inhaler inhaler (Symbicort) clonazepam 1 mg tablet 1 mg PO BID 06/01/23 06/01/23 History hydrocodone 7.5 mg-acetaminophen 7.5 - 325 tablet PO Q4-6H 06/01/23 06/01/23 History 325 mg tablet levofloxacin 500 mg tablet 500 mg PO DAILY 06/01/23 06/01/23 History lisinopril 20 mg tablet 20 mg PO DAILY 06/01/23 06/01/23 History loperamide 2 mg capsule 2 mg PO Q4-6H PRN Diarrhea 06/01/23 06/01/23 History metronidazole 500 mg tablet 500 mg PO DAILY 06/01/23 06/01/23 History naloxone 4 mg/actuation nasal spray 4 mg intranasal PRN PRN Opiate 06/01/23 06/01/23 History Reversal ondansetron 4 mg disintegrating 4 mg PO Q4-6H PRN Nausea And 06/01/23 06/01/23 History tablet Vomiting pregabalin 75 mg capsule 75 mg PO BID 06/01/23 06/01/23 History tizanidine 2 mg tablet 2 mg PO BID 06/01/23 06/01/23 History tramadol 50 mg tablet 50 mg PO PRN PRN Pain (Scale Score 06/01/23 06/01/23 History 4-6) Laboratory Tests 06/04/23 06/05/23 06/05/23 15:06 06:13 07:05 WBC 6.0 K/mm3 (4.5-10.0) RBC 3.50 L M/mm3 (4.2-5.4) Hgb 11.8 L g/dL (12.0-15.0) Hct 36.7 L % (37.0-47.0) MCV 104.9 H fl (80-100) MCH 33.7 pg (26-34) MCHC 32.2 g/dl (32-36) RDW 13.4 % (11.5-14.5) Plt Count 263 k/mm3 (150-375) MPV 9.5 fl (7.4-10.4) Immature Gran % (Auto) 0.2 % (0-0.5) Neut % (Auto) 81.6 H % (45.5-73.1) Lymph % (Auto) 10.9 L % (18.3-44.2) [place] % (Auto) 6.3 % (2.6-8.5) Eos % (Auto) 0.7 % (0-4.4) Baso % (Auto) 0.3 % (0.2-1.2) Lymph # (Auto) 0.66 L K/mm3 (0.9-3.2) [facility] # (Auto) 0.4 K/mm3 (0.1-0.6) Eos # (Auto) 0.0 K/mm3 (0-0.3) Baso # (Auto) 0.0 K/mm3 (0.0-0.1) Abs Immat Gran (auto) 0.01 K/mm3 (0.00-0.031) Absolute Neuts (auto) 4.9 K/mm3 (1.3-6.7) Absolute Nucleated RBC 0.0 K/mm3 (0.0-0.012) Nucleated RBC % 0.0 % (0.0-0.2) Sodium 134 L mmol/L (137-145) Potassium 3.3 L mmol/L 2.9 L mmol/L (3.4-5.0) (3.4-5.0) Chloride 107 mmol/L (98-107) Carbon Dioxide 24 mmol/L (22-30) Anion Gap 3 L mmol/L (8-16) BUN 15 mg/dL (7-17) Creatinine 0.50 L mg/dL (0.7-1.0) Estim Creat Clear Calc 60 ml/min Estimated GFR > 60 (59 - ) Glucose 81 mg/dL (65-110) Calcium 7.8 L mg/dL (8.4-10.2) Phosphorus 3.3 mg/dL (2.5-4.5) Magnesium 1.8 mg/dL (1.6-2.3) Albumin 2.5 L g/dL (3.5-5.1) IgA Pending Tiss Transglutamin IgG Pending Tiss Transglut IgA Comm Pending Celiac Disease Interp Pending Patient hx anesthesia problems: none Family
--- NOTE | 2023-06-05 15:10 | SUR.PHASEII ---
Notified Dr. James about patients blood pressures in recovery. Pressures were starting to trend back down but were 90s/[address] James, check a pressure again after a few minutes and as long as it remains 90's systolic patient can return to the floor. Alli Dee RN updated.
[2023-06-05] MEDS: METOCLOPRAMIDE HCL 5 MG TABLET PO ×2 (18:26→21:33)
[2023-06-05 19:35] LABS: Potassium 3.3 mmol/L (3.4-5.0)
[2023-06-05] MEDS: ENOXAPARIN 40 MG/0.4 ML SYRINGE SUB-Q (20:22)
[2023-06-05] MEDS: POTASSIUM CHLORIDE 20 MEQ ER TABLET 40 MEQ PO (20:22)
[2023-06-06] MEDS: LOPERAMIDE HCL 2 MG CAPSULE PO ×2 (01:51→18:21)
[2023-06-06] MEDS: ONDANSETRON INJ 4 MG/2 ML VIAL IV PUSH ×3 (01:52→16:56)
[2023-06-06 05:42] VITALS: BP 132/86; PULSE 78; RESP 16; TEMP 35.8; O2SAT 96
[2023-06-06] MEDS: ALTEPLASE 2 MG VIAL (CATHFLO) IV PUSH (06:02)
[2023-06-06 06:47] LABS: Basophils Percent Auto 0.5 % (0.2-1.2); Eosinophils Percent Auto 0.4 % (0-4.4); Hematocrit 33.4 % (37.0-47.0); Hemoglobin 10.9 g/dL (12.0-15.0); Immature Granulocyte Absolute 0.03 K/mm3 (0.00-0.031); Immature Granulocyte Percent A 0.4 % (0-0.5); Lymphocytes Absolute Auto 0.68 K/mm3 (0.9-3.2); Lymphocytes Percent Auto 8.8 % (18.3-44.2); Mean Corpuscular HGB Conc 32.6 g/dl (32-36); Mean Corpuscular Hemoglobin 33.9 pg (26-34); Mean Corpuscular Volume 103.7 fl (80-100); Mean Platelet Volume 9.1 fl (7.4-10.4); Monocytes Absolute Auto 0.5 K/mm3 (0.1-0.6); Neutrophils Absolute Auto 6.5 K/mm3 (1.3-6.7); Neutrophils Percent Auto 83.9 % (45.5-73.1); Platelet Count Result 242 k/mm3 (150-375); Red Blood Count 3.22 M/mm3 (4.2-5.4); Red Cell Distribution Width 13.8 % (11.5-14.5); White Blood Count 7.7 K/mm3 (4.5-10.0)
[2023-06-06 07:07] LABS: Albumin Level 2.3 g/dL (3.5-5.1); Anion Gap 3 mmol/L (8-16); Blood Urea Nitrogen 15 mg/dL (7-17); Calcium 7.4 mg/dL (8.4-10.2); Carbon Dioxide 24 mmol/L (22-30); Chloride 107 mmol/L (98-107); Estimated CRCL calculation 51 ml/min; Estimated Glomerular Filt Rate > 60; Glucose 75 mg/dL (65-110); Magnesium 1.9 mg/dL (1.6-2.3); Phosphorus 4.2 mg/dL (2.5-4.5); Potassium 2.7 mmol/L (3.4-5.0); Sodium 134 mmol/L (137-145)
[2023-06-06] MEDS: FLUTICASONE/SALMETEROL 115-21 MCG INHALER 1 PUFF 2 PUFF INHALATION ×2 (07:40→20:12)
[2023-06-06] MEDS: FAMOTIDINE 20 MG TABLET 40 MG PO (08:49)
[2023-06-06] MEDS: PREGABALIN (*CRX) 75 MG CAPSULE PO ×2 (08:49→16:57)
[2023-06-06] MEDS: lisinopriL 20 MG TABLET PO (08:49)
[2023-06-06] MEDS: TIZANIDINE HCL 2 MG TABLET PO ×2 (08:49→17:02)
[2023-06-06] MEDS: clonazePAM (*CRX) 0.5 MG TABLET 1 MG PO ×2 (08:49→16:56)
[2023-06-06] MEDS: CENTRAL LINE FLUSH 10 ML IV PUSH ×3 (08:50→21:30)
[2023-06-06] MEDS: POTASSIUM CHLORIDE INJ 40 MEQ in SODIUM CHLORIDE 0.9% IV 500 ML 130 MEQ IVPB ×2 (08:50→18:21)
[2023-06-06] MEDS: MAGNESIUM SULF 2 GM/WATER 50ML 2 GM/50 ML BAG IVPB (08:51)
--- NOTE | 2023-06-06 09:08 | WPDGIPROGNO ---
Progress Note: A&P Assessment and Plan (1) Diarrhea: Code(s): R19.7 - Diarrhea, unspecified Status: Acute Assessment and Plan: persistent for several weeks unremarkable colonoscopy with pending biopsies, also pending duodenal bx to check for celiac started on questran (2) Nausea and vomiting in adult: Code(s): R11.2 - Nausea with vomiting, unspecified Status: Acute Assessment and Plan: egd found food in stomach ? gastroparesis order anti-hu (rule out paraneoplastic syndrome) (3) Moderate protein-calorie malnutrition: Code(s): E44.0 - Moderate protein-calorie malnutrition Status: Acute Assessment and Plan: weight loss and decrease appetite also presentation with low K monitor (4) Lung cancer: Code(s): C34.90 - Malignant neoplasm of unspecified part of unspecified bronchus or lung Status: Acute Assessment and Plan: by oncologist (5) Acute hypokalemia: Code(s): E87.6 - Hypokalemia Status: Acute Subjective Date/time seen: 06/06/23 09:08 Interval history: egd yesterday found food in stomach, colonoscopy unremarkable with pending biopsies still with diarrhea- just started on questran Review of Systems Review of Systems: All systems reviewed & are unremarkable except as noted in HPI and below Exam Const: General: comfortable Other: thin, pleasant HENMT: Face/Nose/Sinus: Normal nares present Eyes: Sclera: sclerae normal Neck: Neck: supple Chest: Other: port in chest Resp: Effort & Inspection: normal respiratory effort Cardio: Rate: regular rate GI: GI Palp: Yes Soft to palpation, No Tenderness to palpation present (GI) and No Guarding due to palpation present (GI) Auscultation: normal bowel sounds Skin: General skin exam: no rashes or lesions noted Neuro: Speech: normal speech Motor exam (neuro): 5/5 motor strength present throughout Extrem: General: normal to inspection Psych: Affect: normal affect Objective Data Vital Signs Vital Signs: Vital Signs - 24 hr 06/05/23 13:33 06/05/23 14:40 06/05/23 14:47 Temperature 97 F L Pulse Rate 85 80 79 Respiratory Rate 20 17 17 Blood Pressure 135/75 63/36 L 67/38 L Pulse Oximetry 97 96 97 Oxygen Delivery Room Air Room Air Room Air 06/05/23 14:51 06/05/23 15:00 06/05/23 15:10 Temperature Pulse Rate 75 77 75 Respiratory Rate 18 18 19 Blood Pressure 128/80 105/60 97/58 L Pulse Oximetry 99 99 99 Oxygen Delivery Room Air Room Air Room Air 06/05/23 15:13 06/05/23 15:15 06/05/23 15:35 Temperature 96.3 F L Pulse Rate 78 77 Respiratory Rate 21 H 16 Blood Pressure 93/60 L 97/58 L 120/71 Pulse Oximetry 96 99 Oxygen Delivery Room Air 06/05/23 15:50 06/05/23 16:20 06/05/23 17:20 Temperature 96.4 F L 96.8 F L 96.5 F L Pulse Rate 76 77 80 Respiratory Rate 16 18 16 Blood Pressure 120/66 114/62 110/71 Pulse Oximetry 98 98 96 Oxygen Delivery 06/05/23 21:17 06/05/23 20:00 06/05/23 22:00 Temperature 98.6 F Pulse Rate 78 73 Respiratory Rate 16 16 Blood Pressure 98/56 L Pulse Oximetry 93 Oxygen Delivery Room Air 06/06/23 05:42 06/05/23 21:00 Temperature 96.5 F L Pulse Rate 78 Respiratory Rate 16 Blood Pressure 132/86 Pulse Oximetry 96 96 Oxygen Delivery Room Air Intake/Output Intake/Output: Intake & Output 06/03/23 06/04/23 06/05/23 06/06/23 23:59 23:59 23:59 23:59 Intake Total 2190 1860 1700 300 Output Total 800 Balance 2190 1060 1700 300 Meds/Results Medications: Active Medications Generic Name Dose Route Start Last Admin Trade Name Freq PRN Reason Stop Dose Admin Acetaminophen 650 mg 06/01/23 23:26 Acetaminophen 325 Mg Tablet PO Q4H PRN Mild Pain (1-3) or Fever Hydrocodone Bitart/Acetaminophen 1 tab 06/01/23 23:27 06/05/23 20:23 Hydrocodone/Acetaminophen (*Crx) 7.5-325 Mg Tablet PO 1 tab Q4H PRN Administration Pain Rated 7-10 Alb
[2023-06-06] MEDS: CHOLESTYRAMINE (W/ SUGAR) 4 GM POWD.PACK PO (11:49)
[2023-06-06 14:00] VITALS: BP 143/75; PULSE 76; RESP 14; TEMP 36.7; O2SAT 97
--- NOTE | 2023-06-06 14:55 | WPDANESPN ---
Anes - Prog Note Post-Op Date/Time: 06/06/23 14:55 Cardiovascular status: normal Respiratory status: normal Airway patency: baseline Mental status: baseline Post-Op hydration status: normal Vital Signs: Last Vital Signs Temp 35.8 C L 06/06/23 05:42 Pulse 78 06/06/23 05:42 Resp 16 06/06/23 05:42 BP 132/86 06/06/23 05:42 Pulse Ox 96 06/06/23 05:42 O2 Del Method Room Air 06/06/23 08:00 Pain Score (VAS): 0/10 I/O: Intake & Output 06/05/23 06/06/23 06/06/23 23:59 07:59 15:59 Intake Total 300 120 Balance 300 120 Laboratory Tests 06/06/23 06:42 06/05/23 06/06/23 06/06/23 19:10 06:42 14:42 WBC 7.7 RBC 3.22 L Hgb 10.9 L Hct 33.4 L MCV 103.7 H MCH 33.9 MCHC 32.6 RDW 13.8 Plt Count 242 MPV 9.1 Immature Gran % (Auto) 0.4 Neut % (Auto) 83.9 H Lymph % (Auto) 8.8 L [place] % (Auto) 6.0 Eos % (Auto) 0.4 Baso % (Auto) 0.5 Lymph # (Auto) 0.68 L [place] # (Auto) 0.5 Eos # (Auto) 0.0 Baso # (Auto) 0.0 Abs Immat Gran (auto) 0.03 Absolute Neuts (auto) 6.5 Absolute Nucleated RBC 0.0 Nucleated RBC % 0.0 Sodium 134 L Potassium 3.3 L 2.7 L* Pending Chloride 107 Carbon Dioxide 24 Anion Gap 3 L BUN 15 Creatinine 0.60 L Estim Creat Clear Calc 51 Estimated GFR > 60 Glucose 75 Calcium 7.4 L Phosphorus 4.2 Magnesium 1.9 Pending Albumin 2.3 L Anti-Hu IgG Ab (IB) Pending Post-procedural complaints: none Patient Feedback: Patient satisfied with anesthetic care.
[2023-06-06 15:05] LABS: Magnesium 2.5 mg/dL (1.6-2.3); Potassium 3.1 mmol/L (3.4-5.0)
--- NOTE | 2023-06-06 17:42 | PM.IMPN ---
Progress Note: A&P Assessment and Plan (1) Acute hypokalemia: Code(s): E87.6 - Hypokalemia Status: Acute Assessment and Plan: Potassium was 2.6 on admission. Patient presents with diarrhea so probably the cause. She received IV replacement. Potassium better but dropped to 2.7 today. Potassium replaced. Magnesium level is 1.9 and replacement ordered. Repeat Mag above 2.0 but potassium 3.1. Replace potassium again. (2) Diarrhea: Code(s): R19.7 - Diarrhea, unspecified Status: Acute Assessment and Plan: Patient has had diarrhea for the past 2 weeks. Last colonoscopy 4 years ago was clear. She has a hx of polypectomy. Hx of XRT mostly to the left lung (supported by CXR findings). She was scheduled see GI but was unable to get appointment yet. No recent antibiotics. C diff was negative. Stool culture negative. CT abdomen pelvis shows air-fluid levels of small and large bowel to the rectum. This is consistent with diarrhea possibly enterocolitis. There is no bowel obstruction, bowel wall thickening, pneumatosis or free air. GI consulted and appreciate their input. EGD - Hiatal hernia and gastric retention. Colonoscopy - Diverticulosis but no polyps or colitis. Biopsies taken. Questran started. Reglan started for the dysmotility/ gastroparesis. 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 Suspect the worsening diarrhea is related to the Reglan. Schedule imodium. Add bulking agent? (3) Nausea and vomiting in adult: Code(s): R11.2 - Nausea with vomiting, unspecified Status: Acute Assessment and Plan: Patient with nausea for the past few weeks related to the stomach cramping. Suspect associated with her diarrhea. As above Zofran available prn (4) Moderate protein-calorie malnutrition: Code(s): E44.0 - Moderate protein-calorie malnutrition Status: Acute Assessment and Plan: Patient with moderate protein calorie malnutrition related to inadequate energy intake as evidenced by patient's reported reduced intake for greater than 1 month and -23% weight loss x1 year. Continue supplements (5) Anxiety: Code(s): F41.9 - Anxiety disorder, unspecified Status: Acute Assessment and Plan: Mood stable. Continue Klonopin. Monitor for over-sedation. (6) Lung cancer: Code(s): C34.90 - Malignant neoplasm of unspecified part of unspecified bronchus or lung Status: Acute Assessment and Plan: Patient has a history of lung cancer. She had treatment in [place] including radiation and chemotherapy. The radiation treatment was mostly to the left lung. Chest x-ray shows right upper lobe and left mid lung field probable radiation changes. PET scan from 05/14/2023 shows 1.4cm nodule left upper lobe and a 1.3 cm nodule in the right upper lobe. These findings may be malignancy and treatment changes. Last treatment was in February. Patient is followed by Dr Govea locally. (7) Hypertension: Code(s): I10 - Essential (primary) hypertension Status: Acute Assessment and Plan: Patient's blood pressure was reviewed on 06/06 Blood pressure remains well controlled. Will continue to monitor (8) COPD (chronic obstructive pulmonary disease): Code(s): J44.9 - Chronic obstructive pulmonary disease, unspecified Status: Acute Assessment and Plan: Stable. No wheezing on exam. Continue Advair. Plan DVT prophylaxis - Lovenox Code status - DNR Subjective Date/time seen: 06/06/23 17:42 Interval history: 73yo female with lung CA, HTN and COPD here for nausea and diarrhea. Having increasing diarhea and nausea. Tolerating solid foods. Chemo on hold for her lung cancer. last chemo was in February. Exam Narrative: AF 98.1 143/75 76 14 97% ra Gen - NARD but appears unwell Chest -Clear anteriorly and in the flanks bilaterall
[2023-06-06 20:15] VITALS: PULSE 80; RESP 16; O2SAT 95
[2023-06-06] MEDS: METOCLOPRAMIDE HCL 5 MG TABLET PO (21:29)
[2023-06-06] MEDS: HYDROcodone/acetaminophen (*CRX) 7.5-325 MG TABLET 1 TAB PO (21:29)
[2023-06-06] MEDS: ENOXAPARIN 40 MG/0.4 ML SYRINGE SUB-Q (21:29)
[2023-06-06 22:00] VITALS: BP 96/68; PULSE 81; RESP 20; TEMP 36.9; O2SAT 99
[2023-06-07] VITALS (7 sets, daily range): BP systolic 112–121; BP diastolic 65–72; PULSE 75–83; RESP 17–18; TEMP 36.4–36.9; O2SAT 95–98
[2023-06-07] MEDS: traMADol HCL (*CRX) 50 MG TABLET PO ×2 (01:09→20:50)
[2023-06-07] MEDS: LOPERAMIDE HCL 2 MG CAPSULE PO ×6 (02:19→23:20)
[2023-06-07] MEDS: METOCLOPRAMIDE HCL 5 MG TABLET PO (06:26)
[2023-06-07] MEDS: ALTEPLASE 2 MG VIAL (CATHFLO) IV PUSH (06:26)
[2023-06-07] MEDS: CENTRAL LINE FLUSH 10 ML IV PUSH ×3 (06:26→20:52)
[2023-06-07 07:23] LABS: Anion Gap 4 mmol/L (8-16); Blood Urea Nitrogen 15 mg/dL (7-17); Calcium 7.3 mg/dL (8.4-10.2); Carbon Dioxide 21 mmol/L (22-30); Chloride 108 mmol/L (98-107); Estimated CRCL calculation 51 ml/min; Estimated Glomerular Filt Rate > 60; Glucose 78 mg/dL (65-110); Phosphorus 3.3 mg/dL (2.5-4.5); Potassium 2.6 mmol/L (3.4-5.0); Sodium 133 mmol/L (137-145)
[2023-06-07] MEDS: lisinopriL 20 MG TABLET PO (08:31)
[2023-06-07] MEDS: POTASSIUM CHLORIDE INJ 40 MEQ in SODIUM CHLORIDE 0.9% IV 500 ML 130 MEQ IVPB ×3 (08:31→22:48)
[2023-06-07] MEDS: FAMOTIDINE 20 MG TABLET 40 MG PO (08:31)
[2023-06-07] MEDS: TIZANIDINE HCL 2 MG TABLET PO ×2 (08:31→17:11)
[2023-06-07] MEDS: PREGABALIN (*CRX) 75 MG CAPSULE PO ×2 (08:31→16:09)
[2023-06-07] MEDS: clonazePAM (*CRX) 0.5 MG TABLET 1 MG PO ×2 (08:31→16:09)
[2023-06-07] MEDS: HYDROcodone/acetaminophen (*CRX) 7.5-325 MG TABLET 1 TAB PO ×2 (08:43→16:09)
--- NOTE | 2023-06-07 08:54 | PCRCNOTE ---
Pt refused 0800 MDI at this time, states she isn't feeling well for it. RN informed.
--- NOTE | 2023-06-07 10:05 | WPDGIPROGNO ---
Progress Note: A&P Assessment and Plan (1) Diarrhea: Code(s): R19.7 - Diarrhea, unspecified Status: Acute Assessment and Plan: persistent for several weeks unremarkable colonoscopy with pending biopsies, no sings of infection or colitis, also pending duodenal bx to check for celiac will increase questran and hold reglan for now (it can cause sometimes more diarrhea) (2) Nausea and vomiting in adult: Code(s): R11.2 - Nausea with vomiting, unspecified Status: Acute Assessment and Plan: egd found food in stomach ? gastroparesis order anti-hu (rule out paraneoplastic syndrome) (3) Moderate protein-calorie malnutrition: Code(s): E44.0 - Moderate protein-calorie malnutrition Status: Acute Assessment and Plan: weight loss and decrease appetite also presentation with low K monitor (4) Lung cancer: Code(s): C34.90 - Malignant neoplasm of unspecified part of unspecified bronchus or lung Status: Acute Assessment and Plan: by oncologist (5) Acute hypokalemia: Code(s): E87.6 - Hypokalemia Status: Acute Assessment and Plan: replacing low K again Subjective Date/time seen: 06/07/23 10:05 Interval history: still with nausea but mostly persistent diarrhea, weak Review of Systems Review of Systems: All systems reviewed & are unremarkable except as noted in HPI and below Exam Const: General: comfortable Other: thin, pleasant HENMT: Face/Nose/Sinus: Normal nares present Eyes: Sclera: sclerae normal Neck: Neck: supple Chest: Other: port in chest Resp: Effort & Inspection: normal respiratory effort Cardio: Rate: regular rate GI: GI Palp: Yes Soft to palpation, No Tenderness to palpation present (GI) and No Guarding due to palpation present (GI) Auscultation: normal bowel sounds Skin: General skin exam: no rashes or lesions noted Neuro: Speech: normal speech Motor exam (neuro): 5/5 motor strength present throughout Extrem: General: normal to inspection Psych: Affect: normal affect Objective Data Vital Signs Vital Signs: Vital Signs - 24 hr 06/06/23 14:00 06/06/23 20:15 06/06/23 20:15 Temperature 98.1 F Pulse Rate 76 80 Respiratory Rate 14 16 Blood Pressure 143/75 H Pulse Oximetry 97 95 Oxygen Delivery Room Air 06/06/23 20:00 06/06/23 22:00 06/07/23 05:53 Temperature 98.4 F 97.6 F Pulse Rate 81 78 Respiratory Rate 20 18 Blood Pressure 96/68 L 121/65 Pulse Oximetry 99 95 Oxygen Delivery Room Air 06/07/23 08:00 06/07/23 08:53 Temperature Pulse Rate 78 Respiratory Rate 18 Blood Pressure Pulse Oximetry 95 95 Oxygen Delivery Room Air Room Air Intake/Output Intake/Output: Intake & Output 06/04/23 06/05/23 06/06/23 06/07/23 23:59 23:59 23:59 23:59 Intake Total 1860 1700 1040 Output Total 800 100 Balance 1060 1700 940 Meds/Results Medications: Active Medications Generic Name Dose Route Start Last Admin Trade Name Freq PRN Reason Stop Dose Admin Acetaminophen 650 mg 06/01/23 23:26 Acetaminophen 325 Mg Tablet PO Q4H PRN Mild Pain (1-3) or Fever Hydrocodone Bitart/Acetaminophen 1 tab 06/01/23 23:27 06/07/23 08:43 Hydrocodone/Acetaminophen (*Crx) 7.5-325 Mg Tablet PO 1 tab Q4H PRN Administration Pain Rated 7-10 Albuterol 2 puff 06/01/23 23:52 Albuterol Sulfate (*Sp) Aerosol 1 Puff INHALATION Q4H PRN Shortness Of Breath Alteplase, Recombinant 2 mg 06/05/23 18:24 06/07/23 06:26 Alteplase 2 Mg Vial (Cathflo) IV PUSH 2 mg ONCE PRN Administration Line Occlusion Cholestyramine Resin 4 gm 06/07/23 18:00 Cholestyramine (W/ Sugar) 4 Gm Powd.Pack PO BID@1000,1800 MARIELEAN Clonazepam 1 mg 06/01/23 23:25 06/07/23 08:31 Clonazepam (*Crx) 0.5 Mg Tablet PO 1 mg BID MARIELENA Administration Dextrose 12.5 gm 06/02/23 07:23 Dextrose 50% 25 Gm/50 Ml Syringe IV PUSH
--- NOTE | 2023-06-07 11:48 | PM.IMPN ---
Progress Note: A&P Assessment and Plan (1) Acute hypokalemia: Code(s): E87.6 - Hypokalemia Status: Acute Assessment and Plan: Potassium was 2.6 on admission. Patient presents with diarrhea so probably the cause. She received IV replacement. Potassium better but dropped to 2.6 today. Potassium replacement ordered. Magnesium level is 2.0. Ectopic production of ACTH may be causing [place] syndrome resulting in hypokalemic alkalosis Check urine potassium. Check cortisol. Consider Spironolactone Follow and replace as needed (2) Diarrhea: Code(s): R19.7 - Diarrhea, unspecified Status: Acute Assessment and Plan: Patient has had diarrhea for the past 2 weeks. Last colonoscopy 4 years ago was clear. She has a hx of polypectomy. She does state that she had diarrhea when she was first treated for her lung CA and the diarrhea improved. Hx of XRT mostly to the left lung (supported by CXR findings). She was scheduled see GI but was unable to get appointment yet. No recent antibiotics. -C diff was negative. Stool culture negative. -CT abdomen pelvis shows air-fluid levels of small and large bowel to the rectum consistent with diarrhea possibly enterocolitis. -EGD - Hiatal hernia and gastric retention. -Colonoscopy - Diverticulosis but no polyps or colitis. Biopsies taken. GI consulted and appreciate their input. Questran started. Reglan started for the dysmotility/ gastroparesis. 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 Suspect the worsening diarrhea is related to the Reglan and Reglan stopped. Questran advanced Advance imodium. Add bulking agent? (3) Nausea and vomiting in adult: Code(s): R11.2 - Nausea with vomiting, unspecified Status: Acute Assessment and Plan: Patient with nausea for the past few weeks related to the stomach cramping. Suspect associated with her diarrhea. As above Zofran available prn (4) Moderate protein-calorie malnutrition: Code(s): E44.0 - Moderate protein-calorie malnutrition Status: Acute Assessment and Plan: Patient with moderate protein calorie malnutrition related to inadequate energy intake as evidenced by patient's reported reduced intake for greater than 1 month and -23% weight loss x1 year. Continue supplements. (5) Anxiety: Code(s): F41.9 - Anxiety disorder, unspecified Status: Acute Assessment and Plan: Mood stable. Continue Klonopin. Monitor for over-sedation. (6) Lung cancer: Code(s): C34.90 - Malignant neoplasm of unspecified part of unspecified bronchus or lung Status: Acute Assessment and Plan: Patient has a history of lung cancer. She had treatment in [place] including radiation and chemotherapy. The radiation treatment was mostly to the left lung. Chest x-ray shows right upper lobe and left mid lung field probable radiation changes. PET scan from 05/14/2023 shows 1.4cm nodule left upper lobe and a 1.3 cm nodule in the right upper lobe. These findings may be malignancy and treatment changes. Last treatment was in February. Patient is followed by Dr Govea locally. (7) Hypertension: Code(s): I10 - Essential (primary) hypertension Status: Acute Assessment and Plan: Patient's blood pressure was reviewed on 06/07 Blood pressure remains well controlled and even soft at times. Decrease Lisinopriol. Will continue to monitor (8) COPD (chronic obstructive pulmonary disease): Code(s): J44.9 - Chronic obstructive pulmonary disease, unspecified Status: Acute Assessment and Plan: Stable. No wheezing on exam. Continue Advair. Plan DVT prophylaxis - Lovenox Code status - DNR Subjective Date/time seen: 06/07/23 11:48 Interval history: 73yo female with lung CA, HTN and COPD here for nausea and diarrhea. She feels the diarrhea is worsening. +Abd pain as
[2023-06-07] MEDS: calcium polycarbophiL 625 MG TABLET PO ×2 (13:58→16:09)
[2023-06-07 14:23] LABS: Potassium 2.9 mmol/L (3.4-5.0)
--- NOTE | 2023-06-07 15:29 | PCPTNOTE ---
attempted physical therapy evaluation, but patient unable to stay awake.
[2023-06-07] MEDS: CHOLESTYRAMINE (W/ SUGAR) 4 GM POWD.PACK PO (17:10)
[2023-06-07] MEDS: ONDANSETRON INJ 4 MG/2 ML VIAL IV PUSH (18:32)
[2023-06-07] MEDS: FLUTICASONE/SALMETEROL 115-21 MCG INHALER 1 PUFF 2 PUFF INHALATION (19:58)
[2023-06-07] MEDS: ENOXAPARIN 40 MG/0.4 ML SYRINGE SUB-Q (20:51)
[2023-06-07 22:23] LABS: Potassium 2.8 mmol/L (3.4-5.0)
[2023-06-08] MEDS: HYDROcodone/acetaminophen (*CRX) 7.5-325 MG TABLET 1 TAB PO (00:09)
[2023-06-08] MEDS: ONDANSETRON INJ 4 MG/2 ML VIAL IV PUSH ×6 (00:09→22:45)
[2023-06-08] MEDS: LOPERAMIDE HCL 2 MG CAPSULE PO ×4 (04:13→17:45)
[2023-06-08 04:44] LABS: Basophils Percent Auto 0.5 % (0.2-1.2); Eosinophils Percent Auto 0.3 % (0-4.4); Hematocrit 33.8 % (37.0-47.0); Hemoglobin 10.8 g/dL (12.0-15.0); Immature Granulocyte Absolute 0.01 K/mm3 (0.00-0.031); Immature Granulocyte Percent A 0.2 % (0-0.5); Lymphocytes Absolute Auto 0.83 K/mm3 (0.9-3.2); Lymphocytes Percent Auto 14.4 % (18.3-44.2); Mean Corpuscular Hemoglobin 33.6 pg (26-34); Mean Corpuscular Volume 105.3 fl (80-100); Mean Platelet Volume 9.1 fl (7.4-10.4); Monocytes Absolute Auto 0.6 K/mm3 (0.1-0.6); Monocytes Percent Auto 10.2 % (2.6-8.5); Neutrophils Absolute Auto 4.3 K/mm3 (1.3-6.7); Neutrophils Percent Auto 74.4 % (45.5-73.1); Platelet Count Result 217 k/mm3 (150-375); Red Blood Count 3.21 M/mm3 (4.2-5.4); Red Cell Distribution Width 13.8 % (11.5-14.5); White Blood Count 5.8 K/mm3 (4.5-10.0)
[2023-06-08 04:55] LABS: Anion Gap 3 mmol/L (8-16); Blood Urea Nitrogen 14 mg/dL (7-17); Calcium 7.2 mg/dL (8.4-10.2); Carbon Dioxide 19 mmol/L (22-30); Chloride 112 mmol/L (98-107); Estimated CRCL calculation 51 ml/min; Estimated Glomerular Filt Rate > 60; Glucose 68 mg/dL (65-110); Magnesium 1.7 mg/dL (1.6-2.3); Potassium 3.1 mmol/L (3.4-5.0); Sodium 134 mmol/L (137-145)
[2023-06-08] MEDS: CENTRAL LINE FLUSH 10 ML IV PUSH ×2 (05:53→15:07)
[2023-06-08 06:00] VITALS: BP 119/63; PULSE 79; RESP 16; TEMP 36.7; O2SAT 95
[2023-06-08] MEDS: POTASSIUM CHLORIDE INJ 40 MEQ in SODIUM CHLORIDE 0.9% IV 500 ML 130 MEQ IVPB ×2 (08:40→17:45)
[2023-06-08] MEDS: FAMOTIDINE 20 MG TABLET 40 MG PO (08:40)
[2023-06-08] MEDS: MAGNESIUM SULF 2 GM/WATER 50ML 2 GM/50 ML BAG IVPB (08:40)
[2023-06-08] MEDS: calcium polycarbophiL 625 MG TABLET PO ×2 (08:41→17:45)
[2023-06-08] MEDS: PREGABALIN (*CRX) 75 MG CAPSULE PO ×2 (08:41→17:46)
[2023-06-08] MEDS: clonazePAM (*CRX) 0.5 MG TABLET 1 MG PO ×2 (08:41→17:46)
[2023-06-08] MEDS: lisinopriL 10 MG TABLET PO (08:41)
[2023-06-08] MEDS: TIZANIDINE HCL 2 MG TABLET PO ×2 (08:41→17:46)
[2023-06-08] MEDS: FLUTICASONE/SALMETEROL 115-21 MCG INHALER 1 PUFF 2 PUFF INHALATION ×2 (09:34→20:07)
--- NOTE | 2023-06-08 12:25 | PM.IMPN ---
Progress Note: A&P Assessment and Plan (1) Acute hypokalemia: Code(s): E87.6 - Hypokalemia Status: Acute Assessment and Plan: Potassium was 2.6 on admission. Patient presents with diarrhea so probably the cause. She received IV replacement. Potassium better but continues to drop. Multiple potassium replacement ordered. Magnesium level is 1.7 and repalcement ordered. Ectopic production of ACTH may be causing [place] syndrome resulting in hypokalemic alkalosis Urine potassium ordered. Cortisol level slightly high but could be related to stress. Consider Spironolactone. Follow electrolytes and replace as needed (2) Diarrhea: Code(s): R19.7 - Diarrhea, unspecified Status: Acute Assessment and Plan: Patient has had diarrhea for the past 2 weeks. Last colonoscopy 4 years ago was clear. She has a hx of polypectomy. She does state that she had diarrhea when she was first treated for her lung CA and the diarrhea improved. Hx of XRT mostly to the left lung (supported by CXR findings). She was scheduled see GI but was unable to get appointment yet. No recent antibiotics. -C diff was negative. Stool culture negative. -CT abdomen pelvis shows air-fluid levels of small and large bowel to the rectum consistent with diarrhea possibly enterocolitis. -EGD - Hiatal hernia and gastric retention. -Colonoscopy - Diverticulosis but no polyps or colitis. Biopsies taken. GI consulted and appreciate their input. Questran started. Reglan started for the dysmotility/ gastroparesis. 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 Suspect the worsening diarrhea is related to the Reglan and Reglan stopped. Questran advanced. Imodium started and advanced. Discussed with GI. Fibercon added. Change to high fiber diet. Will add Emycin for gastroparesis and Rifaximn for bacterial overgrowth. Concern that this might be a part of a paraneoplastic syndrome. Anti-mu Ab ordered but no treatment Start IV fluids (3) Nausea and vomiting in adult: Code(s): R11.2 - Nausea with vomiting, unspecified Status: Acute Assessment and Plan: Patient with nausea for the past few weeks related to the stomach cramping. Suspect associated with her diarrhea. As above Zofran available prn (4) Moderate protein-calorie malnutrition: Code(s): E44.0 - Moderate protein-calorie malnutrition Status: Acute Assessment and Plan: Patient with moderate protein calorie malnutrition related to inadequate energy intake as evidenced by patient's reported reduced intake for greater than 1 month and -23% weight loss x1 year. Continue supplements. (5) Anxiety: Code(s): F41.9 - Anxiety disorder, unspecified Status: Acute Assessment and Plan: Mood stable. Continue Klonopin. Monitor for over-sedation. (6) Lung cancer: Code(s): C34.90 - Malignant neoplasm of unspecified part of unspecified bronchus or lung Status: Acute Assessment and Plan: Patient has a history of lung cancer. She had treatment in [place] including radiation and chemotherapy. The radiation treatment was mostly to the left lung. Chest x-ray shows right upper lobe and left mid lung field probable radiation changes. PET scan from 05/14/2023 shows 1.4cm nodule left upper lobe and a 1.3 cm nodule in the right upper lobe. These findings may be malignancy and treatment changes. Last treatment was in February. Patient is followed by Dr Xuan escudero. Spoke with her about the above findings. She has not had treatment for her lung CA since February. Discussed hospice and she feels 'ready'. Hospice consult (7) Hypertension: Code(s): I10 - Essential (primary) hypertension Status: Acute Assessment and Plan: Patient's blood pressure was reviewed on 06/08 Blood pressure remains well controlled Will continue to monitor (8) COPD (chronic obstructive p
[2023-06-08 12:50] LABS: Magnesium 2.4 mg/dL (1.6-2.3); Potassium 3.3 mmol/L (3.4-5.0)
[2023-06-08 14:00] VITALS: BP 123/60; PULSE 83; RESP 16; TEMP 36.8; O2SAT 96
--- NOTE | 2023-06-08 14:17 | WPDGIPROGNO ---
Progress Note: A&P Assessment and Plan (1) Diarrhea: Code(s): R19.7 - Diarrhea, unspecified Status: Acute Assessment and Plan: persistent for several weeks- unremarkable colonoscopy with pending biopsies, no sings of infection or colitis, also pending duodenal bx to check for celiac on questran diarrhea is worse, agree with xifaxan and schedule imodium, holding reglan for now (it can cause sometimes more diarrhea) ? paraneoplastic syndrome (2) Nausea and vomiting in adult: Code(s): R11.2 - Nausea with vomiting, unspecified Status: Acute Assessment and Plan: egd found food in stomach ? gastroparesis order anti-hu (rule out paraneoplastic syndrome) agree with e-mycin, still with nausea (3) Moderate protein-calorie malnutrition: Code(s): E44.0 - Moderate protein-calorie malnutrition Status: Acute Assessment and Plan: weight loss and decrease appetite also presentation with low K monitor (4) Lung cancer: Code(s): C34.90 - Malignant neoplasm of unspecified part of unspecified bronchus or lung Status: Acute Assessment and Plan: by oncologist discussing with primary team possible hospice care (5) Acute hypokalemia: Code(s): E87.6 - Hypokalemia Status: Acute Assessment and Plan: replacing as needed Subjective Date/time seen: 06/08/23 14:17 Interval history: still with nausea and persistent diarrhea, she is not feeling any better unfortunately Review of Systems Review of Systems: All systems reviewed & are unremarkable except as noted in HPI and below Exam Const: Other: thin, pleasant, cachectic HENMT: Face/Nose/Sinus: Normal nares present Eyes: Sclera: sclerae normal Neck: Neck: supple Chest: Other: port in chest Resp: Effort & Inspection: normal respiratory effort Cardio: Rate: regular rate GI: GI Palp: Yes Soft to palpation, No Tenderness to palpation present (GI) and No Guarding due to palpation present (GI) Auscultation: normal bowel sounds Skin: General skin exam: no rashes or lesions noted Neuro: Speech: normal speech Motor exam (neuro): 5/5 motor strength present throughout Extrem: General: normal to inspection Psych: Affect: normal affect Objective Data Vital Signs Vital Signs: Vital Signs - 24 hr 06/07/23 19:58 06/07/23 20:02 06/07/23 22:00 Temperature 97.8 F Pulse Rate 80 83 Respiratory Rate 17 18 Blood Pressure 119/72 Pulse Oximetry 95 98 Oxygen Delivery Room Air 06/07/23 20:30 06/08/23 06:00 06/08/23 10:40 Temperature 98.1 F Pulse Rate 79 Respiratory Rate 16 Blood Pressure 119/63 Pulse Oximetry 95 Oxygen Delivery Room Air Room Air 06/08/23 08:00 Temperature Pulse Rate Respiratory Rate Blood Pressure Pulse Oximetry Oxygen Delivery Room Air Intake/Output Intake/Output: Intake & Output 06/05/23 06/06/23 06/07/23 06/08/23 23:59 23:59 23:59 23:59 Intake Total 1700 1040 1190 770 Output Total 100 600 500 Balance 1700 940 590 270 Meds/Results Medications: Active Medications Generic Name Dose Route Start Last Admin Trade Name Freq PRN Reason Stop Dose Admin Acetaminophen 650 mg 06/01/23 23:26 Acetaminophen 325 Mg Tablet PO Q4H PRN Mild Pain (1-3) or Fever Hydrocodone Bitart/Acetaminophen 1 tab 06/01/23 23:27 06/08/23 00:09 Hydrocodone/Acetaminophen (*Crx) 7.5-325 Mg Tablet PO 1 tab Q4H PRN Administration Pain Rated 7-10 Albuterol 2 puff 06/01/23 23:52 Albuterol Sulfate (*Sp) Aerosol 1 Puff INHALATION Q4H PRN Shortness Of Breath Alteplase, Recombinant 2 mg 06/05/23 18:24 06/07/23 06:26 Alteplase 2 Mg Vial (Cathflo) IV PUSH 2 mg ONCE PRN Administration Line Occlusion Calcium Polycarbophil 625 mg 06/07/23 13:20 06/08/23 08:41 Calcium Polycarbophil 625 Mg Tablet PO 625 mg BID MARIELENA Administration Cholestyramine Resin 4 gm 06/07/23 1
[2023-06-08] MEDS: KCL 40 MEQ/D5/0.9% SOD CHL 1,000 ML 70 ML IV CONT (15:06)
[2023-06-08] MEDS: rifAXIMin 550 MG TABLET PO ×2 (15:07→21:30)
[2023-06-08] MEDS: CHOLESTYRAMINE (W/ SUGAR) 4 GM POWD.PACK PO (17:45)
[2023-06-08] MEDS: ERYTHROMYCIN 250 MG TABLET PO (17:46)
[2023-06-08 20:13] VITALS: PULSE 85; O2SAT 96
[2023-06-08] MEDS: ENOXAPARIN 40 MG/0.4 ML SYRINGE SUB-Q (21:30)
[2023-06-08 22:00] VITALS: BP 112/59; PULSE 84; RESP 20; TEMP 37.2; O2SAT 97
[2023-06-09] VITALS (7 sets, daily range): BP systolic 106–109; BP diastolic 58–63; PULSE 63–81; RESP 14–20; TEMP 36.8–37.7; O2SAT 94–96
[2023-06-09] MEDS: LOPERAMIDE HCL 2 MG CAPSULE PO ×5 (00:41→23:43)
[2023-06-09] MEDS: ERYTHROMYCIN 250 MG TABLET PO ×5 (00:41→23:43)
[2023-06-09] MEDS: HEPARIN SODIUM LOCK FLUSH 500 UNITS/5 ML SYRINGE IV PUSH (00:43)
[2023-06-09] MEDS: traMADol HCL (*CRX) 50 MG TABLET PO ×2 (02:02→23:43)
[2023-06-09] MEDS: ONDANSETRON INJ 4 MG/2 ML VIAL IV PUSH ×3 (02:44→23:05)
[2023-06-09] MEDS: FLUTICASONE/SALMETEROL 115-21 MCG INHALER 1 PUFF 2 PUFF INHALATION ×2 (07:13→19:15)
[2023-06-09 07:21] LABS: Anion Gap 2 mmol/L (8-16); Blood Urea Nitrogen 14 mg/dL (7-17); Calcium 7.3 mg/dL (8.4-10.2); Carbon Dioxide 19 mmol/L (22-30); Chloride 112 mmol/L (98-107); Estimated CRCL calculation 51 ml/min; Estimated Glomerular Filt Rate > 60; Glucose 92 mg/dL (65-110); Magnesium 1.8 mg/dL (1.6-2.3); Potassium 3.2 mmol/L (3.4-5.0); Sodium 133 mmol/L (137-145)
[2023-06-09] MEDS: POTASSIUM CHLORIDE INJ 40 MEQ in SODIUM CHLORIDE 0.9% IV 500 ML 130 MEQ IVPB (09:01)
[2023-06-09] MEDS: MAGNESIUM SULF 2 GM/WATER 50ML 2 GM/50 ML BAG IVPB (09:01)
[2023-06-09] MEDS: PREGABALIN (*CRX) 75 MG CAPSULE PO ×2 (09:02→18:12)
[2023-06-09] MEDS: clonazePAM (*CRX) 0.5 MG TABLET 1 MG PO ×2 (09:02→18:12)
[2023-06-09] MEDS: rifAXIMin 550 MG TABLET PO ×2 (09:02→23:45)
[2023-06-09] MEDS: lisinopriL 10 MG TABLET PO (09:02)
[2023-06-09] MEDS: calcium polycarbophiL 625 MG TABLET PO ×2 (09:02→18:12)
[2023-06-09] MEDS: FAMOTIDINE 20 MG TABLET 40 MG PO (09:02)
[2023-06-09] MEDS: TIZANIDINE HCL 2 MG TABLET PO ×2 (09:02→18:12)
[2023-06-09] MEDS: CHOLESTYRAMINE (W/ SUGAR) 4 GM POWD.PACK PO ×2 (09:04→18:20)
[2023-06-09 10:17] LABS: Immunoglobulin A 235 mg/dL (70-320); TTG IGA AB <1.0 U/mL (<15.0)
--- NOTE | 2023-06-09 10:53 | PCPTNOTE ---
Attempted to see patient for Physical Therapy this AM. Patient stated that she was tired and wanted to eat her breakfast. Therapist offered to help patient to the chair to eat, however patient declined and wanted to stay in bed. Patient stated that she did not fall asleep until 0500 this morning.
--- NOTE | 2023-06-09 11:22 | PCOTNOTE ---
Attempted to see Patient for OT treatment session. Patient sleeping and does not want to wake up, will not answer questions, just states tired, sleeping . Patient will not participate in any activities.
--- NOTE | 2023-06-09 11:31 | PCNFU ---
Nutrition Follow-Up Complete: Moderate protein calorie malnutrition related to inadequate energy intake as evidenced by pt report of reduced intake for greater than 1 month, -23% wt loss x 1 year. Goal: PO intake to remain greater than 50% for meals and supplements Pt not meeting goal. Pt current nutrition is High fiber, Ensure clear BID. Nutrition recommendation: Add banatrol BID for diarrhea Last recorded weight is 46.5 kg. Bowel Motility: +BM 06/09 Labs Reviewed: NA:133, K:3.2, Cr:0.6 Meds Noted: lovenox, reglan, zofran, KCL Skin: WNL Additional Notes: Pt on a high fiber diet, intake varied 0-50% but poor overall. Pt does not like the supplements. Stated she has continued to have diarrhea. Will order banatrol BID. Monitor intake, wt, labs. Follow up in 7 days
--- NOTE | 2023-06-09 12:10 | WPDGIPROGNO ---
Progress Note: A&P Assessment and Plan (1) Diarrhea: Code(s): R19.7 - Diarrhea, unspecified Status: Acute Assessment and Plan: persistent for several weeks- unremarkable colonoscopy- biopsies still pending but no obvious no signs of infection or colitis, also pending duodenal bx to check for celiac on questran,lyrica and imodium, added xifaxan ? paraneoplastic syndrome (2) Nausea and vomiting in adult: Code(s): R11.2 - Nausea with vomiting, unspecified Status: Acute Assessment and Plan: egd found food in stomach ? gastroparesis anti-hu still pending (rule out paraneoplastic syndrome) agree with e-mycin, still with nausea (3) Moderate protein-calorie malnutrition: Code(s): E44.0 - Moderate protein-calorie malnutrition Status: Acute Assessment and Plan: weight loss and decrease appetite also presentation with low K monitor (4) Lung cancer: Code(s): C34.90 - Malignant neoplasm of unspecified part of unspecified bronchus or lung Status: Acute Assessment and Plan: by oncologist discussing with primary team possible hospice care, declining status (5) Acute hypokalemia: Code(s): E87.6 - Hypokalemia Status: Acute Assessment and Plan: replacing as needed Subjective Date/time seen: 06/09/23 12:10 Interval history: still feeling miserable with persistent nausea and diarrhea Review of Systems Review of Systems: All systems reviewed & are unremarkable except as noted in HPI and below Exam Const: Other: thin, pleasant, cachectic HENMT: Face/Nose/Sinus: Normal nares present Eyes: Sclera: sclerae normal Neck: Neck: supple Chest: Other: port in chest Resp: Effort & Inspection: normal respiratory effort Cardio: Rate: regular rate GI: GI Palp: Yes Soft to palpation, No Tenderness to palpation present (GI) and No Guarding due to palpation present (GI) Auscultation: normal bowel sounds Skin: General skin exam: no rashes or lesions noted Neuro: Speech: normal speech Motor exam (neuro): 5/5 motor strength present throughout Extrem: General: normal to inspection Psych: Affect: normal affect Objective Data Vital Signs Vital Signs: Vital Signs - 24 hr 06/08/23 14:00 06/08/23 20:13 06/08/23 22:00 Temperature 98.2 F 98.9 F Pulse Rate 83 85 84 Respiratory Rate 16 20 Blood Pressure 123/60 112/59 L Pulse Oximetry 96 96 97 Oxygen Delivery Room Air 06/09/23 06:00 06/09/23 07:15 06/09/23 07:15 Temperature 98.7 F Pulse Rate 81 63 63 Respiratory Rate 20 16 16 Blood Pressure 109/58 L Pulse Oximetry 96 95 Oxygen Delivery Room Air 06/09/23 08:00 Temperature Pulse Rate Respiratory Rate Blood Pressure Pulse Oximetry Oxygen Delivery Room Air Intake/Output Intake/Output: Intake & Output 06/06/23 06/07/23 06/08/23 06/09/23 23:59 23:59 23:59 23:59 Intake Total 1040 1190 1010 100 Output Total 100 600 700 Balance 940 590 310 100 Meds/Results Medications: Active Medications Generic Name Dose Route Start Last Admin Trade Name Freq PRN Reason Stop Dose Admin Acetaminophen 650 mg 06/01/23 23:26 Acetaminophen 325 Mg Tablet PO Q4H PRN Mild Pain (1-3) or Fever Hydrocodone Bitart/Acetaminophen 1 tab 06/01/23 23:27 06/08/23 00:09 Hydrocodone/Acetaminophen (*Crx) 7.5-325 Mg Tablet PO 1 tab Q4H PRN Administration Pain Rated 7-10 Albuterol 2 puff 06/01/23 23:52 Albuterol Sulfate (*Sp) Aerosol 1 Puff INHALATION Q4H PRN Shortness Of Breath Alteplase, Recombinant 2 mg 06/05/23 18:24 06/07/23 06:26 Alteplase 2 Mg Vial (Cathflo) IV PUSH 2 mg ONCE PRN Administration Line Occlusion Calcium Polycarbophil 625 mg 06/07/23 13:20 06/09/23 09:02 Calcium Polycarbophil 625 Mg Tablet PO 625 mg BID MARIELENA Administration Cholestyramine Resin 4 gm 06/07/23 18:00 06/09/23 09:04 Cholestyramine (W/ Sugar) 4 G
[2023-06-09] MEDS: KCL 40 MEQ/D5/0.9% SOD CHL 1,000 ML 70 ML IV CONT (14:47)
[2023-06-09 15:10] LABS: Magnesium 2.2 mg/dL (1.6-2.3); Potassium 4.1 mmol/L (3.4-5.0)
[2023-06-09] MEDS: CENTRAL LINE FLUSH 10 ML IV PUSH (23:50)
[2023-06-10] MEDS: ONDANSETRON INJ 4 MG/2 ML VIAL IV PUSH ×2 (04:22→09:46)
[2023-06-10] MEDS: oxyCODONE/ACETAMINOPHEN (*CRX) 5-325 MG TABLET 1 TABLET PO (04:22)
[2023-06-10 05:39] VITALS: BP 115/73; PULSE 86; RESP 14; TEMP 36.6; O2SAT 98
[2023-06-10] MEDS: ERYTHROMYCIN 250 MG TABLET PO (06:59)
[2023-06-10] MEDS: CENTRAL LINE FLUSH 10 ML IV PUSH (07:01)
[2023-06-10] MEDS: LOPERAMIDE HCL 2 MG CAPSULE PO ×2 (07:01→11:42)
[2023-06-10 07:17] LABS: Basophils Percent Auto 0.3 % (0.2-1.2); Eosinophils Percent Auto 0.5 % (0-4.4); Hematocrit 33.3 % (37.0-47.0); Hemoglobin 10.8 g/dL (12.0-15.0); Immature Granulocyte Absolute 0.03 K/mm3 (0.00-0.031); Immature Granulocyte Percent A 0.5 % (0-0.5); Lymphocytes Absolute Auto 0.84 K/mm3 (0.9-3.2); Lymphocytes Percent Auto 12.7 % (18.3-44.2); Mean Corpuscular HGB Conc 32.4 g/dl (32-36); Mean Corpuscular Hemoglobin 33.9 pg (26-34); Mean Corpuscular Volume 104.4 fl (80-100); Monocytes Absolute Auto 0.7 K/mm3 (0.1-0.6); Monocytes Percent Auto 10.3 % (2.6-8.5); Neutrophils Percent Auto 75.7 % (45.5-73.1); Platelet Count Result 219 k/mm3 (150-375); Red Blood Count 3.19 M/mm3 (4.2-5.4); Red Cell Distribution Width 13.9 % (11.5-14.5); White Blood Count 6.6 K/mm3 (4.5-10.0)
[2023-06-10 07:28] LABS: Albumin Level 1.9 g/dL (3.5-5.1); Anion Gap -1 mmol/L (8-16); Blood Urea Nitrogen 12 mg/dL (7-17); Calcium 7.1 mg/dL (8.4-10.2); Carbon Dioxide 22 mmol/L (22-30); Chloride 112 mmol/L (98-107); Estimated CRCL calculation 51 ml/min; Estimated Glomerular Filt Rate > 60; Glucose 85 mg/dL (65-110); Magnesium 1.8 mg/dL (1.6-2.3); Phosphorus 2.9 mg/dL (2.5-4.5); Potassium 3.4 mmol/L (3.4-5.0); Sodium 133 mmol/L (137-145)
[2023-06-10 08:35] VITALS: O2SAT 96
[2023-06-10] MEDS: FLUTICASONE/SALMETEROL 115-21 MCG INHALER 1 PUFF 2 PUFF INHALATION ×2 (08:35→20:10)
--- NOTE | 2023-06-10 09:38 | PM.IMPN ---
Progress Note: A&P Assessment and Plan (1) Acute hypokalemia: Code(s): E87.6 - Hypokalemia Status: Acute Assessment and Plan: Potassium was 2.6 on admission. Patient presents with diarrhea so probably the cause. She received IV replacement. Potassium better but continues to drop. Multiple potassium replacement ordered. Magnesium level is 1.8 and replacement ordered. Ectopic production of ACTH may be causing Zaida syndrome resulting in hypokalemic alkalosis Urine potassium ordered but not cllected. Cortisol level slightly high but could be related to stress. Consider Spironolactone but already lowing fluids Follow electrolytes and replace as needed (2) Diarrhea: Code(s): R19.7 - Diarrhea, unspecified Status: Acute Assessment and Plan: Patient has had diarrhea for the past 2 weeks. Last colonoscopy 4 years ago was clear. She has a hx of polypectomy. She does state that she had diarrhea when she was first treated for her lung CA and the diarrhea improved. Hx of XRT mostly to the left lung (supported by CXR findings). She was scheduled see GI but was unable to get appointment yet. No recent antibiotics. -C diff was negative. Stool culture negative. -CT abdomen pelvis shows air-fluid levels of small and large bowel to the rectum consistent with diarrhea possibly enterocolitis. -EGD - Hiatal hernia and gastric retention. -Colonoscopy - Diverticulosis but no polyps or colitis. Biopsies taken. GI consulted and appreciate their input. Questran started. Reglan started for the dysmotility/ gastroparesis. 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 Suspect the worsening diarrhea is related to the Reglan and Reglan stopped. Ongoing discussion with GI about current treatment plan Questran advanced. Imodium started and advanced. Fibercon added. Change to high fiber diet. Emycin added for gastroparesis and Rifaximn for bacterial overgrowth. Concern that this might be a part of a paraneoplastic syndrome. Anti-mu Ab pending Continue IV fluids (3) Nausea and vomiting in adult: Code(s): R11.2 - Nausea with vomiting, unspecified Status: Acute Assessment and Plan: Patient with nausea for the past few weeks related to the stomach cramping. Suspect associated with her diarrhea. Still having n/v. As above Trial of Reglan instead of Zofran Dilaudid for pain control (4) Moderate protein-calorie malnutrition: Code(s): E44.0 - Moderate protein-calorie malnutrition Status: Acute Assessment and Plan: Patient with moderate protein calorie malnutrition related to inadequate energy intake as evidenced by patient's reported reduced intake for greater than 1 month and -23% weight loss x1 year. Continue supplements. (5) Lung cancer: Code(s): C34.90 - Malignant neoplasm of unspecified part of unspecified bronchus or lung Status: Acute Assessment and Plan: Patient has a history of lung cancer. She had treatment in [place] including radiation and chemotherapy. The radiation treatment was mostly to the left lung. Chest x-ray shows right upper lobe and left mid lung field probable radiation changes. PET scan from 05/14/2023 shows 1.4cm nodule left upper lobe and a 1.3 cm nodule in the right upper lobe. These findings may be malignancy and treatment changes. Last treatment was in February. Patient is followed by Dr Xuan escudero. Spoke with her about the above findings. She has not had treatment for her lung CA since February. Discussed hospice and she feels 'ready'. Hospice consult was placed (6) Hypertension: Code(s): I10 - Essential (primary) hypertension Status: Acute Assessment and Plan: Patient's blood pressure was reviewed on 06/10 Blood pressure remains well controlled Will continue to monitor (7) COPD (chronic obstructive pulmonary disease): Code(s): J44.9 - Chronic o
[2023-06-10] MEDS: KCL 40 MEQ/D5/0.9% SOD CHL 1,000 ML 70 ML IV CONT (09:46)
[2023-06-10] MEDS: PROMETHAZINE HCL 25 MG/ML AMPUL 12.5 MG IV PUSH ×2 (11:40→17:21)
--- NOTE | 2023-06-10 12:21 | PCOTNOTE ---
Attempted to see Patient at this time. Patient verbalized, Im not interested , want to be left alone . Per child care aide, Patient's wants to have a meeting with her family about her wants.
[2023-06-10 14:00] VITALS: BP 101/63; PULSE 95; RESP 18; TEMP 37.1; O2SAT 97
--- NOTE | 2023-06-10 14:25 | WPDGIPROGNO ---
Progress Note: A&P Assessment and Plan (1) Diarrhea: Code(s): R19.7 - Diarrhea, unspecified Status: Acute Assessment and Plan: persistent for several weeks- unremarkable colonoscopy- biopsies still pending but no obvious no signs of infection or colitis serology for celiac negative on questran,lyrica and imodium, also empirically on xifaxan ? paraneoplastic syndrome (2) Nausea and vomiting in adult: Code(s): R11.2 - Nausea with vomiting, unspecified Status: Acute Assessment and Plan: egd found food in stomach ? gastroparesis anti-hu still pending (rule out paraneoplastic syndrome) agree with e-mycin, still with nausea (3) Moderate protein-calorie malnutrition: Code(s): E44.0 - Moderate protein-calorie malnutrition Status: Acute Assessment and Plan: weight loss and decrease appetite also presentation with low K monitor (4) Lung cancer: Code(s): C34.90 - Malignant neoplasm of unspecified part of unspecified bronchus or lung Status: Acute Assessment and Plan: by oncologist discussing with primary team possible hospice care, declining status (5) Acute hypokalemia: Code(s): E87.6 - Hypokalemia Status: Acute Assessment and Plan: replacing as needed Subjective Date/time seen: 06/10/23 14:25 Interval history: no changes, still with diarrhea Review of Systems Review of Systems: All systems reviewed & are unremarkable except as noted in HPI and below Exam Const: Other: thin, pleasant, cachectic HENMT: Face/Nose/Sinus: Normal nares present Eyes: Sclera: sclerae normal Neck: Neck: supple Chest: Other: port in chest Resp: Effort & Inspection: normal respiratory effort Cardio: Rate: regular rate GI: GI Palp: Yes Soft to palpation, No Tenderness to palpation present (GI) and No Guarding due to palpation present (GI) Auscultation: normal bowel sounds Skin: General skin exam: no rashes or lesions noted Neuro: Speech: normal speech Motor exam (neuro): 5/5 motor strength present throughout Extrem: General: normal to inspection Psych: Affect: normal affect Objective Data Vital Signs Vital Signs: Vital Signs - 24 hr 06/09/23 19:16 06/09/23 19:20 06/09/23 21:15 Temperature 99.9 F H Pulse Rate 80 80 72 Respiratory Rate 16 16 16 Blood Pressure Pulse Oximetry 95 95 Oxygen Delivery Room Air 06/09/23 22:38 06/10/23 05:39 06/10/23 08:35 Temperature 97.9 F Pulse Rate 86 Respiratory Rate 14 Blood Pressure 106/63 115/73 Pulse Oximetry 98 96 Oxygen Delivery Room Air 06/10/23 14:00 Temperature 98.7 F Pulse Rate 95 Respiratory Rate 18 Blood Pressure 101/63 Pulse Oximetry 97 Oxygen Delivery Intake/Output Intake/Output: Intake & Output 06/07/23 06/08/23 06/09/23 06/10/23 23:59 23:59 23:59 23:59 Intake Total 1190 1010 1100 1500 Output Total 600 700 Balance 521 911 9353 1500 Meds/Results Medications: Active Medications Generic Name Dose Route Start Last Admin Trade Name Freq PRN Reason Stop Dose Admin Acetaminophen 650 mg 06/01/23 23:26 Acetaminophen 325 Mg Tablet PO Q4H PRN Mild Pain (1-3) or Fever Albuterol 2 puff 06/01/23 23:52 Albuterol Sulfate (*Sp) Aerosol 1 Puff INHALATION Q4H PRN Shortness Of Breath Alteplase, Recombinant 2 mg 06/05/23 18:24 06/07/23 06:26 Alteplase 2 Mg Vial (Cathflo) IV PUSH 2 mg ONCE PRN Administration Line Occlusion Calcium Polycarbophil 625 mg 06/07/23 13:20 06/10/23 13:13 Calcium Polycarbophil 625 Mg Tablet PO Not Given BID [facility] Cholestyramine Resin 4 gm 06/07/23 18:00 06/10/23 13:16 Cholestyramine (W/ Sugar) 4 Gm Powd.Pack PO Not Given BID@1000,1800 MARIELENA Clonazepam 1 mg 06/01/23 23:25 06/10/23 13:09 Clonazepam (*Crx) 0.5 Mg Tablet PO Not Given BID MARIELENA Dextrose 12.5 gm 06/02/23 07:23 Dextrose 50% 25 Gm/50 Ml Syringe IV P
[2023-06-10] MEDS: HYDROmorphone HCL INJ (*CRX) 1 MG/ML SYR 0.5 MG IV PUSH (17:52)
[2023-06-10 20:00] VITALS: PULSE 74; RESP 16; O2SAT 96
[2023-06-10 20:13] VITALS: PULSE 74; RESP 16; O2SAT 96
[2023-06-10 21:37] VITALS: BP 122/76; PULSE 90; RESP 14; TEMP 36.8; O2SAT 96
[2023-06-11] MEDS: METOCLOPRAMIDE HCL INJ 10 MG/2 ML VIAL IV PUSH ×3 (00:10→12:23)
[2023-06-11] MEDS: HYDROmorphone HCL INJ (*CRX) 1 MG/ML SYR 0.5 MG IV PUSH ×3 (00:11→14:39)
[2023-06-11] MEDS: LOPERAMIDE HCL 2 MG CAPSULE PO ×2 (00:11→12:23)
[2023-06-11] MEDS: KCL 40 MEQ/D5/0.9% SOD CHL 1,000 ML 70 ML IV CONT ×2 (00:19→14:05)
[2023-06-11 05:38] VITALS: BP 125/73; PULSE 90; RESP 13; TEMP 36.9; O2SAT 92
[2023-06-11] MEDS: rifAXIMin 550 MG TABLET PO (08:35)
[2023-06-11] MEDS: FLUTICASONE/SALMETEROL 115-21 MCG INHALER 1 PUFF 2 PUFF INHALATION (08:36)
[2023-06-11] MEDS: clonazePAM (*CRX) 0.5 MG TABLET 1 MG PO (08:36)
[2023-06-11 08:37] VITALS: O2SAT 96
[2023-06-11 08:38] VITALS: RESP 14; O2SAT 96
[2023-06-11] MEDS: PREGABALIN (*CRX) 75 MG CAPSULE PO (08:38)
[2023-06-11] MEDS: TIZANIDINE HCL 2 MG TABLET PO (08:38)
[2023-06-11] MEDS: lisinopriL 10 MG TABLET PO (08:38)
[2023-06-11] MEDS: FAMOTIDINE 20 MG TABLET 40 MG PO (08:38)
--- NOTE | 2023-06-11 08:39 | P.PNIM_ITS ---
Progress Note: A&P Assessment and Plan (1) Acute hypokalemia: Code(s): E87.6 - Hypokalemia Status: Acute Assessment and Plan: Potassium was 2.6 on admission. Patient presents with diarrhea so probably the cause. She received IV replacement. Potassium better but continues to drop. Multiple potassium replacement ordered. Magnesium level is 1.8 and replacement ordered. Ectopic production of ACTH may be causing Zaida syndrome resulting in hypokalemic alkalosis Urine potassium ordered but not cllected. Cortisol level slightly high but could be related to stress. Consider Spironolactone but already lowing fluids Follow electrolytes and replace as needed (2) Diarrhea: Code(s): R19.7 - Diarrhea, unspecified Status: Acute Assessment and Plan: Patient has had diarrhea for the past 2 weeks. Last colonoscopy 4 years ago was clear. She has a hx of polypectomy. She does state that she had diarrhea when she was first treated for her lung CA and the diarrhea improved. Hx of XRT mostly to the left lung (supported by CXR findings). She was scheduled see GI but was unable to get appointment yet. No recent antibiotics. -C diff was negative. Stool culture negative. -CT abdomen pelvis shows air-fluid levels of small and large bowel to the rectum consistent with diarrhea possibly enterocolitis. -EGD - Hiatal hernia and gastric retention. -Colonoscopy - Diverticulosis but no polyps or colitis. Biopsies taken. GI consulted and appreciate their input. Questran started. Reglan started for the dysmotility/ gastroparesis. 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 Suspect the worsening diarrhea is related to the Reglan and Reglan stopped. Ongoing discussion with GI about current treatment plan Questran advanced. Imodium started and advanced. Fibercon added. Change to high fiber diet. Emycin added for gastroparesis and Rifaximn for bacterial overgrowth. Concern that this might be a part of a paraneoplastic syndrome. Anti-mu Ab pending Continue IV fluids (3) Nausea and vomiting in adult: Code(s): R11.2 - Nausea with vomiting, unspecified Status: Acute Assessment and Plan: Patient with nausea for the past few weeks related to the stomach cramping. Suspect associated with her diarrhea. Still having n/v. As above Trial of Reglan instead of Zofran Dilaudid for pain control (4) Moderate protein-calorie malnutrition: Code(s): E44.0 - Moderate protein-calorie malnutrition Status: Acute Assessment and Plan: Patient with moderate protein calorie malnutrition related to inadequate energy intake as evidenced by patient's reported reduced intake for greater than 1 month and -23% weight loss x1 year. Continue supplements. (5) Lung cancer: Code(s): C34.90 - Malignant neoplasm of unspecified part of unspecified bronchus or lung Status: Acute Assessment and Plan: Patient has a history of lung cancer. She had treatment in [place] including radiation and chemotherapy. The radiation treatment was mostly to the left lung. Chest x-ray shows right upper lobe and left mid lung field probable radiation changes. PET scan from 05/14/2023 shows 1.4cm nodule left upper lobe and a 1.3 cm nodule in the right upper lobe. These findings may be malignancy and treatment changes. Last treatment was in February. Patient is followed by Dr Govea locally. Spoke with her about the above findings. She has not had treatment for her lung CA since February. Discussed hospice and she feels 'ready'. Hospice consult was placed
[2023-06-11] MEDS: ERYTHROMYCIN 250 MG TABLET PO (12:23)
[2023-06-11] MEDS: CENTRAL LINE FLUSH 10 ML IV PUSH (13:26)
[2023-06-11 14:00] VITALS: BP 105/62; PULSE 99; RESP 14; TEMP 36.9; O2SAT 98
--- NOTE | 2023-06-11 14:02 | WPDGIPROGNO ---
Progress Note: A&P Assessment and Plan (1) Diarrhea: Code(s): R19.7 - Diarrhea, unspecified Status: Acute Assessment and Plan: persistent for several weeks- unremarkable colonoscopy- biopsies still pending but no obvious no signs of infection or colitis serology for celiac negative on questran,lyrica and imodium, also empirically on xifaxan ? paraneoplastic syndrome (2) Nausea and vomiting in adult: Code(s): R11.2 - Nausea with vomiting, unspecified Status: Acute Assessment and Plan: egd found food in stomach ? gastroparesis anti-hu still pending (rule out paraneoplastic syndrome) given ongoing symptoms, she decided to proceed with hospice care will sign off (3) Moderate protein-calorie malnutrition: Code(s): E44.0 - Moderate protein-calorie malnutrition Status: Acute Assessment and Plan: weight loss and decrease appetite also presentation with low K monitor (4) Lung cancer: Code(s): C34.90 - Malignant neoplasm of unspecified part of unspecified bronchus or lung Status: Acute Assessment and Plan: by oncologist discussing with primary team possible hospice care, declining status Subjective Date/time seen: 06/11/23 14:02 Interval history: no changes, same diarrhea and nausea she is pleasant but does not have energy Review of Systems Review of Systems: All systems reviewed & are unremarkable except as noted in HPI and below Exam Const: Other: thin, pleasant, cachectic HENMT: Face/Nose/Sinus: Normal nares present Eyes: Sclera: sclerae normal Neck: Neck: supple Chest: Other: port in chest Resp: Effort & Inspection: normal respiratory effort Cardio: Rate: regular rate GI: GI Palp: Yes Soft to palpation, No Tenderness to palpation present (GI) and No Guarding due to palpation present (GI) Auscultation: normal bowel sounds Skin: General skin exam: no rashes or lesions noted Neuro: Speech: normal speech Motor exam (neuro): 5/5 motor strength present throughout Extrem: General: normal to inspection Psych: Affect: normal affect Objective Data Vital Signs Vital Signs: Vital Signs - 24 hr 06/10/23 20:13 06/10/23 20:13 06/10/23 20:00 Temperature Pulse Rate 74 74 Respiratory Rate 16 16 Blood Pressure Pulse Oximetry 96 96 Oxygen Delivery Room Air Room Air 06/10/23 21:37 06/11/23 05:38 06/11/23 08:37 Temperature 98.2 F 98.4 F Pulse Rate 90 90 Respiratory Rate 14 13 Blood Pressure 122/76 125/73 Pulse Oximetry 96 92 96 Oxygen Delivery Room Air 06/11/23 08:38 Temperature Pulse Rate Respiratory Rate 14 Blood Pressure Pulse Oximetry 96 Oxygen Delivery Room Air Intake/Output Intake/Output: Intake & Output 06/08/23 06/09/23 06/10/23 06/11/23 23:59 23:59 23:59 23:59 Intake Total 1010 1100 1500 2590 Output Total 700 Balance 310 1100 1500 2590 Meds/Results Medications: Active Medications Generic Name Dose Route Start Last Admin Trade Name Freq PRN Reason Stop Dose Admin Acetaminophen 650 mg 06/01/23 23:26 Acetaminophen 325 Mg Tablet PO Q4H PRN Mild Pain (1-3) or Fever Albuterol 2 puff 06/01/23 23:52 Albuterol Sulfate (*Sp) Aerosol 1 Puff INHALATION Q4H PRN Shortness Of Breath Alteplase, Recombinant 2 mg 06/05/23 18:24 06/07/23 06:26 Alteplase 2 Mg Vial (Cathflo) IV PUSH 2 mg ONCE PRN Administration Line Occlusion Calcium Polycarbophil 625 mg 06/07/23 13:20 06/11/23 08:39 Calcium Polycarbophil 625 Mg Tablet PO Not Given BID [facility] Cholestyramine Resin 4 gm 06/07/23 18:00 06/11/23 10:04 Cholestyramine (W/ Sugar) 4 Gm Powd.Pack PO Not Given BID@1000,1800 [facility] Clonazepam 1 mg 06/01/23 23:25 06/11/23 08:36 Clonazepam (*Crx) 0.5 Mg Tablet PO 1 mg BID MARIELENA Administration Dextrose 12.5 gm 06/02/23 07:23 Dextrose 50% 25 Gm/50 Ml Syringe IV PUSH PRN PRN Hypoglycemia
[2023-06-11] MEDS: PROMETHAZINE HCL 25 MG/ML AMPUL 12.5 MG IV PUSH (14:51)
--- NOTE | 2023-06-11 15:00 | PM.DS ---
DS: Admitting Diagnosis Discharge Date 06/11/23 Admitting Diagnosis diarrhea + nausea DS: Discharge Diagnosis Discharge Diagnosis (1) Acute hypokalemia: Code(s): E87.6 - Hypokalemia Status: Acute Assessment and Plan: Potassium was 2.6 on admission. Patient presents with diarrhea so probably the cause. She received IV replacement. Potassium better but continues to drop. Multiple potassium replacement ordered. Magnesium level is 1.8 and replacement ordered. Ectopic production of ACTH may be causing [place] syndrome resulting in hypokalemic alkalosis Urine potassium ordered but not cllected. Cortisol level slightly high but could be related to stress. Consider Spironolactone but already lowing fluids Follow electrolytes and replace as needed (2) Diarrhea: Code(s): R19.7 - Diarrhea, unspecified Status: Acute Assessment and Plan: Patient has had diarrhea for the past 2 weeks. Last colonoscopy 4 years ago was clear. She has a hx of polypectomy. She does state that she had diarrhea when she was first treated for her lung CA and the diarrhea improved. Hx of XRT mostly to the left lung (supported by CXR findings). She was scheduled see GI but was unable to get appointment yet. No recent antibiotics. -C diff was negative. Stool culture negative. -CT abdomen pelvis shows air-fluid levels of small and large bowel to the rectum consistent with diarrhea possibly enterocolitis. -EGD - Hiatal hernia and gastric retention. -Colonoscopy - Diverticulosis but no polyps or colitis. Biopsies taken. GI consulted and appreciate their input. Questran started. Reglan started for the dysmotility/ gastroparesis. 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 Suspect the worsening diarrhea is related to the Reglan and Reglan stopped. Ongoing discussion with GI about current treatment plan Questran advanced. Imodium started and advanced. Fibercon added. Change to high fiber diet. Emycin added for gastroparesis and Rifaximn for bacterial overgrowth. Concern that this might be a part of a paraneoplastic syndrome. Anti-mu Ab pending Continue IV fluids (3) Nausea and vomiting in adult: Code(s): R11.2 - Nausea with vomiting, unspecified Status: Acute Assessment and Plan: Patient with nausea for the past few weeks related to the stomach cramping. Suspect associated with her diarrhea. Still having n/v. As above Trial of Reglan instead of Zofran Dilaudid for pain control (4) Moderate protein-calorie malnutrition: Code(s): E44.0 - Moderate protein-calorie malnutrition Status: Acute Assessment and Plan: Patient with moderate protein calorie malnutrition related to inadequate energy intake as evidenced by patient's reported reduced intake for greater than 1 month and -23% weight loss x1 year. Continue supplements. (5) Lung cancer: Code(s): C34.90 - Malignant neoplasm of unspecified part of unspecified bronchus or lung Status: Acute Assessment and Plan: Patient has a history of lung cancer. She had treatment in [place] including radiation and chemotherapy. The radiation treatment was mostly to the left lung. Chest x-ray shows right upper lobe and left mid lung field probable radiation changes. PET scan from 05/14/2023 shows 1.4cm nodule left upper lobe and a 1.3 cm nodule in the right upper lobe. These findings may be malignancy and treatment changes. Last treatment was in February. Patient is followed by Dr Xuan escudero. Spoke with her about the above findings. She has not had treatment for her lung CA since February. Discussed hospice and she feels 'ready'. Hospice consult was placed (6) Hypertension: Code(s): I10 - Essential (primary) hypertension Status: Acute Assessment and Plan: Patient's blood pressure was reviewed on 06/10 Blood pressure remains well controlled Will continue to mo
== END 2023-06-11 15:14 | disposition hospice, inpatient (51) | DRG 392 ==
LOC: ANHED 18:42 → ANH3MEDSUR 20:45
PROVIDERS: Emergency Medicine; Internal Medicine; Internal Medicine Gastroenterology; Nurse Practitioner; Physician Assistant; Admitting Provider Internal Medicine; Emergency Provider Emergency Medicine; PCP Family Medicine; Visit Provider Student in an Organized Health Care Education/Training Program
PROC: 0DJ08ZZ Inspection of Upper Intestinal Tract, Via Natural or Artificial Opening Endoscopic (ICD-10-PCS; CPT 43235; principal; 2023-06-05 14:30)
DX: K52.9 Noninfective gastroenteritis and colitis, unspecified (principal); C34.90 Malignant neoplasm of unspecified part of unspecified bronchus or lung; E44.0 Moderate protein-calorie malnutrition; Z68.1 Body mass index [BMI] 19.9 or less, adult; E87.6 Hypokalemia; J44.9 Chronic obstructive pulmonary disease, unspecified; I10 Essential (primary) hypertension; K44.9 Diaphragmatic hernia without obstruction or gangrene; K31.84 Gastroparesis; K57.30 Diverticulosis of large intestine without perforation or abscess without bleeding; M54.2 Cervicalgia; F41.9 Anxiety disorder, unspecified; Z20.822 Contact with and (suspected) exposure to COVID-19; Z92.3 Personal history of irradiation; Z87.828 Personal history of other (healed) physical injury and trauma; Z98.1 Arthrodesis status; Z87.891 Personal history of nicotine dependence; Z51.5 Encounter for palliative care
CPT/HCPCS: 36415; 71045; 74177; 80047; 80048; 80053; 80069; 82274; 82533; 82607; 82746; 82784; 82948; 83735; 84100; 84132; 84443; 85025; 86364; 87045; 87269; 87272; 87427; 87449; 87493; 87637; 88305; 88342; 93005; 94640; 96361; 96365; 96366; 96367; 96372; 96375; 96376; 97110; 97161; 97166; 97530; 97535; 99285; A9270; G0378; J1170; J1642; J1650; J2371; J2405; J2550; J2704; J2765; J2997; J3010; J3475; J3480; J7030; J7040; J7120; Q9967

== ENCOUNTER 2023-06-11 15:15 | HOS | payer OTHER, MEDICARE, SELFPAY ==
[2023-06-11 15:30] VITALS: RESP 16; O2SAT 95
--- NOTE | 2023-06-11 15:30 | ADMGEN ---
This patient, Hannah Howard, was admitted to [facility] Surg Room 306-02. Patient/family oriented to hospital policies and general routines including ID bracelet, bed and alarms, visiting hours, pain management, procedures, bathroom and other care routines, personal items, smoking policy, room service/diet, and visiting hours. Information on how to activate the Rapid Response Team has been discussed. Patient/Family are encouraged to report perceived risks to care and to ask questions if they do not understand what they are told or what they should do.
[2023-06-11 16:39] VITALS: BMI 18.7
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
[2023-06-11] MEDS: PROCHLORPERAZINE EDISYLATE 10 MG/2 ML VIAL IV PUSH (17:27)
[2023-06-11 17:28] VITALS: PULSE 95; RESP 16
[2023-06-11] MEDS: HYDROmorphone HCL/PF (*CRX) 50 MG in SODIUM CHLORIDE 0.9% IV 95 ML IV CONT (17:28)
[2023-06-11] MEDS: DEXAMETHASONE SOD PHOS INJ 4 MG/ML VIAL IV PUSH ×2 (17:28→20:40)
[2023-06-11 20:15] VITALS: PULSE 111; RESP 16; O2SAT 93
[2023-06-11 21:00] VITALS: BP 92/57; PULSE 111; RESP 16; TEMP 37.2; O2SAT 93
[2023-06-11] MEDS: LORazepam INJ (*CRX) 2 MG/ML VIAL 1 MG IV PUSH (21:29)
[2023-06-12] MEDS: PROCHLORPERAZINE EDISYLATE 10 MG/2 ML VIAL IV PUSH ×5 (00:50→20:40)
[2023-06-12 08:50] VITALS: BP 118/76; PULSE 101; RESP 15; TEMP 36.1; O2SAT 96
[2023-06-12] MEDS: PROMETHAZINE HCL 25 MG/ML AMPUL 12.5 MG IV PUSH (09:04)
[2023-06-12] MEDS: DEXAMETHASONE SOD PHOS INJ 4 MG/ML VIAL IV PUSH ×2 (09:07→20:40)
[2023-06-12] MEDS: HYDROmorphone HCL/PF (*CRX) 50 MG in SODIUM CHLORIDE 0.9% IV 95 ML IV CONT (16:04)
--- NOTE | 2023-06-12 16:57 | PM.IMPN ---
Progress Note: A&P Assessment and Plan (1) Palliative care encounter: Code(s): Z51.5 - Encounter for palliative care Status: Acute Assessment and Plan: Meets inpatient hospice criteria due to requiring continuous IV hydromorphone 0.25mg/hr for pain and scheduled IV antiemetics for nausea with emesis IV dexamethasone, prn IV promethazine, prn IV lorazepam, prn IV glycopyrrolate (if needed for secretions gut motility will likely not be germane) Consider somatostatin if refractory diarrhea persists (though impaired motility may be the underlying culprit if paraneoplastic) 06/12/2023: Increaseed hydromorphone to 0.5 mg/hr, changed prochlorperazine to 10mg IV AC and HS (2) Lung cancer: Code(s): C34.90 - Malignant neoplasm of unspecified part of unspecified bronchus or lung Status: Acute Assessment and Plan: NSCLC per chart (3) Nausea and vomiting in adult: Code(s): R11.2 - Nausea with vomiting, unspecified Status: Acute (4) COPD (chronic obstructive pulmonary disease): Code(s): J44.9 - Chronic obstructive pulmonary disease, unspecified Status: Acute (5) Diarrhea: Code(s): R19.7 - Diarrhea, unspecified Status: Acute Assessment and Plan: Possible paraneoplastic syndrome (6) Moderate protein-calorie malnutrition: Code(s): E44.0 - Moderate protein-calorie malnutrition Status: Acute Subjective Date/time seen: 06/12/23 16:57 Interval history: No diarrhea all AM. Nausea after eating but no emesis. Abd pain 7/10 before hydromorphone drip increased to 0.5 mg/hr this afternoon, now 4-5/10 and tolerable. Review of Systems Review of Systems: All systems reviewed & are unremarkable except as noted in HPI and below Exam Narrative: Chronically ill-appearing, gaunt elderly female appears older than stated age of 73 with diffuse muscle wasting. Sclerae nonicteric. Pharyngeal mucosa dry. Neck without thyromegaly or JVD or adenopathy. Chest breath sounds clear to auscultation and nonlabored respirations. Heart normal S1 and S2 with rate regular and no audible murmurs. Abdomen scaphoid soft no palpable masses nontender with bowel sounds present. Extremities mild nonpitting edema of ankles and feet. Musculoskeletal with diffuse muscle wasting. No gross deformities to visual inspection. Neurologic cranial nerves 3-12 intact and symmetric to visual inspection. Diffuse and symmetric 3 to 4/5 weakness. Psychiatric drowsy but arouses easily. Oriented to person place and year. Affect blunted. Objective Data Vital Signs Vital Signs: Vital Signs - 24 hr 06/11/23 17:28 06/11/23 21:00 06/11/23 20:15 Temperature 98.9 F Pulse Rate 95 111 H 111 H Respiratory Rate 16 16 16 Blood Pressure 92/57 L Pulse Oximetry 93 93 Oxygen Delivery Room Air 06/12/23 08:50 Temperature 96.9 F L Pulse Rate 101 H Respiratory Rate 15 Blood Pressure 118/76 Pulse Oximetry 96 Oxygen Delivery Intake/Output Intake/Output: Intake & Output 06/09/23 06/10/23 06/11/23 06/12/23 23:59 23:59 23:59 23:59 Intake Total 30 300 Balance 30 300 Meds/Results Medications: Active Medications Generic Name Dose Route Start Last Admin Trade Name Freq PRN Reason Stop Dose Admin Artificial Tears 0 drop 06/11/23 15:50 Artificial Tears Ophth Soln 15 Ml Bottle EACH EYE Q12H PRN Dry Eye(s) Bisacodyl 10 mg 06/11/23 15:50 Bisacodyl 10 Mg Suppository RECTAL DAILY PRN Constipation Dexamethasone Sodium Phosphate 4 mg 06/11/23 21:00 06/12/23 09:07 Dexamethasone Sod Phos Inj 4 Mg/Ml Vial IV PUSH 4 mg Q12HR MARIELENA Administration Glycopyrrolate 0.1 mg 06/11/23 15:50 Glycopyrrolate Inj (*Sp) 0.2 Mg/Ml Vial IV PUSH Q4H PRN secretions Hydromorphone HCl 1 mg 06/11/23 15:53 Hydromorphone Hcl Inj (*Crx) 1 Mg/Ml Syr IV PUSH Q2H PRN Pain Hydromorphone HCl 50 mg/ 100 mls @ 1 mls/hr
[2023-06-12 20:00] VITALS: BP 121/76; PULSE 108; RESP 16; TEMP 38; O2SAT 94
[2023-06-12] MEDS: LORazepam INJ (*CRX) 2 MG/ML VIAL 1 MG IV PUSH (20:58)
[2023-06-13] MEDS: LORazepam INJ (*CRX) 2 MG/ML VIAL 1 MG IV PUSH ×2 (00:10→20:03)
[2023-06-13] MEDS: PROMETHAZINE HCL 25 MG/ML AMPUL 12.5 MG IV PUSH (03:13)
[2023-06-13] MEDS: PROCHLORPERAZINE EDISYLATE 10 MG/2 ML VIAL IV PUSH ×4 (06:34→20:05)
[2023-06-13 08:00] VITALS: BP 121/91; PULSE 102; PULSE 108; RESP 16; TEMP 37; O2SAT 94; O2SAT 97
[2023-06-13] MEDS: DEXAMETHASONE SOD PHOS INJ 4 MG/ML VIAL IV PUSH ×2 (10:00→20:04)
[2023-06-13] MEDS: HYDROmorphone HCL/PF (*CRX) 50 MG in SODIUM CHLORIDE 0.9% IV 95 ML IV CONT ×2 (16:46→20:34)
[2023-06-13 17:15] VITALS: PULSE 70; RESP 16
--- NOTE | 2023-06-13 19:30 | PM.IMPN ---
Progress Note: A&P Assessment and Plan (1) Palliative care encounter: Code(s): Z51.5 - Encounter for palliative care Status: Acute Assessment and Plan: Meets inpatient hospice criteria due to requiring continuous IV hydromorphone 0.25mg/hr for pain and scheduled IV antiemetics for nausea with emesis IV dexamethasone, prn IV promethazine, prn IV lorazepam, prn IV glycopyrrolate (if needed for secretions gut motility will likely not be germane) Consider somatostatin if refractory diarrhea persists (though impaired motility may be the underlying culprit if paraneoplastic) 06/12/2023: Increased hydromorphone to 0.5 mg/hr, changed prochlorperazine to 10mg IV AC and HS 06/13/2023: Increased hydromorphone to 1 mg/hr again due to uncontrolled pain (2) Lung cancer: Code(s): C34.90 - Malignant neoplasm of unspecified part of unspecified bronchus or lung Status: Acute Assessment and Plan: NSCLC per chart (3) Nausea and vomiting in adult: Code(s): R11.2 - Nausea with vomiting, unspecified Status: Acute (4) COPD (chronic obstructive pulmonary disease): Code(s): J44.9 - Chronic obstructive pulmonary disease, unspecified Status: Acute (5) Diarrhea: Code(s): R19.7 - Diarrhea, unspecified Status: Acute Assessment and Plan: Possible paraneoplastic syndrome (6) Moderate protein-calorie malnutrition: Code(s): E44.0 - Moderate protein-calorie malnutrition Status: Acute Subjective Date/time seen: 06/13/23 19:30 Interval history: More anxious 9/8 PM after family left. Hydromorphone increased to 1 mg/hr and too drowsy this AM. Now back at 0.5 mg/hr. Took her until 3 pm to be coherent. But then pain returned to 7/10 and she became very anxious. Review of Systems Review of Systems: All systems reviewed & are unremarkable except as noted in HPI and below Exam Narrative: Chronically ill-appearing, gaunt elderly female appears older than stated age of 73 with diffuse muscle wasting. Sclerae nonicteric. Pharyngeal mucosa dry. Neck without thyromegaly or JVD or adenopathy. Chest breath sounds clear to auscultation and nonlabored respirations. Heart normal S1 and S2 with rate regular and no audible murmurs. Abdomen scaphoid soft no palpable masses nontender with bowel sounds present. Extremities mild nonpitting edema of ankles and feet. Musculoskeletal with diffuse muscle wasting. No gross deformities to visual inspection. Neurologic cranial nerves 3-12 intact and symmetric to visual inspection. Diffuse and symmetric 3 to 4/5 weakness. Psychiatric drowsy but arouses easily. Oriented to person place and year. Affect blunted. Objective Data Vital Signs Vital Signs: Vital Signs - 24 hr 06/12/23 20:00 06/12/23 20:00 06/13/23 08:00 Temperature 100.4 F H Pulse Rate 108 H 108 H 108 H Respiratory Rate 16 16 16 Blood Pressure 121/76 Pulse Oximetry 94 94 94 Oxygen Delivery Room Air Room Air 06/13/23 08:00 06/13/23 17:15 Temperature 98.6 F Pulse Rate 102 H 70 Respiratory Rate 16 16 Blood Pressure 121/91 H Pulse Oximetry 97 Oxygen Delivery Intake/Output Intake/Output: Intake & Output 06/10/23 06/11/23 06/12/23 06/13/23 23:59 23:59 23:59 23:59 Intake Total 30 780 450 Output Total 100 Balance 30 680 450 Meds/Results Medications: Active Medications Generic Name Dose Route Start Last Admin Trade Name Freq PRN Reason Stop Dose Admin Artificial Tears 0 drop 06/11/23 15:50 Artificial Tears Ophth Soln 15 Ml Bottle EACH EYE Q12H PRN Dry Eye(s) Bisacodyl 10 mg 06/11/23 15:50 Bisacodyl 10 Mg Suppository RECTAL DAILY PRN Constipation Dexamethasone Sodium Phosphate 4 mg 06/11/23 21:00 06/13/23 10:00 Dexamethasone Sod Phos Inj 4 Mg/Ml Vial IV PUSH 4 mg Q12HR MARIELENA Administration Glycopyrrolate 0.1 mg 06/11/23 15:50 Glycopyrrolate Inj (*Sp) 0.2 Mg/Ml Vial IV PUSH
--- NOTE | 2023-06-13 19:50 | PC.NURSE ---
Spoke with Dr. Jaime at nurses station and requested to put order in for ricci catheter.
--- NOTE | 2023-06-13 19:50 | PC.NURSE ---
Dr. Jaime at nurses station at this time. Requested to increase dilaudid from 0.5mg/ml to 1mg/ml.
[2023-06-13 20:00] VITALS: BP 104/70; PULSE 103; RESP 6; TEMP 36.3; O2SAT 98
[2023-06-13 20:34] VITALS: PULSE 80; RESP 20
[2023-06-14] MEDS: PROCHLORPERAZINE EDISYLATE 10 MG/2 ML VIAL IV PUSH ×4 (05:49→21:57)
--- NOTE | 2023-06-14 07:27 | PC.NURSE ---
On 06/13 at 0257 this nurse verified with Kati Patrick a rate change on a hydromorphone drip. This nurse changed the rate from 0.5mg/1 hr to 1mg/1 hr due to patient pain/restlessness. The hydromorphone drip order was changed but the titration was not entered into the computer to show a rate increase. The rate of the hydromorphone drip was running at 1mg/1 hr from 06/13 at 0257 until 06/13 at 1302 when it was changed back to 0.5mg/1 hr.
[2023-06-14 07:30] VITALS: PULSE 66; RESP 18
[2023-06-14 08:00] VITALS: BP 90/63; PULSE 109; RESP 18; TEMP 36.8; O2SAT 90
[2023-06-14] MEDS: DEXAMETHASONE SOD PHOS INJ 4 MG/ML VIAL IV PUSH ×2 (10:00→21:53)
[2023-06-14] MEDS: LORazepam INJ (*CRX) 2 MG/ML VIAL 1 MG IV PUSH ×2 (10:23→15:39)
--- NOTE | 2023-06-14 11:39 | PM.IMPN ---
Progress Note: A&P Assessment and Plan (1) Palliative care encounter: Code(s): Z51.5 - Encounter for palliative care Status: Acute Assessment and Plan: Meets inpatient hospice criteria due to requiring continuous IV hydromorphone 0.25mg/hr for pain and scheduled IV antiemetics for nausea with emesis IV dexamethasone, prn IV promethazine, prn IV lorazepam, prn IV glycopyrrolate (if needed for secretions gut motility will likely not be germane) Consider somatostatin if refractory diarrhea persists (though impaired motility may be the underlying culprit if paraneoplastic) 06/12/2023: Increased hydromorphone to 0.5 mg/hr, changed prochlorperazine to 10mg IV AC and HS 06/13/2023: Increased hydromorphone to 1 mg/hr again due to uncontrolled pain 06/14/2023: Continue current regimen. Discussed with family at bedside. (2) Lung cancer: Code(s): C34.90 - Malignant neoplasm of unspecified part of unspecified bronchus or lung Status: Acute Assessment and Plan: NSCLC per chart (3) Nausea and vomiting in adult: Code(s): R11.2 - Nausea with vomiting, unspecified Status: Acute (4) COPD (chronic obstructive pulmonary disease): Code(s): J44.9 - Chronic obstructive pulmonary disease, unspecified Status: Acute (5) Diarrhea: Code(s): R19.7 - Diarrhea, unspecified Status: Acute Assessment and Plan: Possible paraneoplastic syndrome (6) Moderate protein-calorie malnutrition: Code(s): E44.0 - Moderate protein-calorie malnutrition Status: Acute Subjective Date/time seen: 06/14/23 11:39 Interval history: Quiet night. Required breakthrough meds this AM during bathing and repositioning. Review of Systems Review of Systems: ROS unobtainable: Yes unobtainable due to medical condition Exam Narrative: Chronically ill-appearing, gaunt elderly female appears older than stated age of 73 with diffuse muscle wasting. Sclerae nonicteric. Pharyngeal mucosa dry. Neck without thyromegaly or JVD or adenopathy. Chest breath sounds clear to auscultation and nonlabored respirations. Heart normal S1 and S2 with rate regular and no audible murmurs. Abdomen scaphoid soft no palpable masses nontender with bowel sounds present. Extremities mild nonpitting edema of ankles and feet. Musculoskeletal with diffuse muscle wasting. No gross deformities to visual inspection. Neurologic cranial nerves 3-12 intact and symmetric to visual inspection. Diffuse and symmetric 3 to 4/5 weakness. Psychiatric drowsy but arouses easily. Oriented to person only. Objective Data Vital Signs Vital Signs: Vital Signs - 24 hr 06/13/23 17:15 06/13/23 20:34 06/13/23 20:00 Temperature Pulse Rate 70 80 Respiratory Rate 16 20 Blood Pressure Pulse Oximetry Oxygen Delivery Room Air 06/13/23 20:00 06/14/23 08:00 06/14/23 07:30 Temperature 97.4 F L 98.2 F Pulse Rate 103 H 109 H 66 Respiratory Rate 6 L 18 Blood Pressure 104/70 90/63 L Pulse Oximetry 98 90 Oxygen Delivery Intake/Output Intake/Output: Intake & Output 06/11/23 06/12/23 06/13/23 06/14/23 23:59 23:59 23:59 23:59 Intake Total 30 780 450 Output Total 100 750 Balance 30 680 450 -750 Meds/Results Medications: Active Medications Generic Name Dose Route Start Last Admin Trade Name Freq PRN Reason Stop Dose Admin Artificial Tears 0 drop 06/11/23 15:50 Artificial Tears Ophth Soln 15 Ml Bottle EACH EYE Q12H PRN Dry Eye(s) Bisacodyl 10 mg 06/11/23 15:50 Bisacodyl 10 Mg Suppository RECTAL DAILY PRN Constipation Dexamethasone Sodium Phosphate 4 mg 06/11/23 21:00 06/13/23 20:04 Dexamethasone Sod Phos Inj 4 Mg/Ml Vial IV PUSH 4 mg Q12HR MARIELENA Administration Glycopyrrolate 0.1 mg 06/11/23 15:50 Glycopyrrolate Inj (*Sp) 0.2 Mg/Ml Vial IV PUSH Q4H PRN secretions Hydromorphone HCl 1 mg 06/13/23 02:56 Hydromorphone Hcl In
[2023-06-14] MEDS: HYDROmorphone HCL INJ (*CRX) 1 MG/ML SYR IV PUSH ×3 (13:21→14:58)
[2023-06-14 17:41] VITALS: PULSE 109; RESP 14
[2023-06-14] MEDS: HYDROmorphone HCL INJ (*CRX) 1 MG/ML SYR 2 MG IV PUSH (17:43)
[2023-06-14 20:00] VITALS: BP 93/57; PULSE 91; RESP 16; TEMP 36.7; O2SAT 95
[2023-06-14 22:00] VITALS: PULSE 104
[2023-06-14] MEDS: HYDROmorphone HCL/PF (*CRX) 50 MG in SODIUM CHLORIDE 0.9% IV 95 ML IV CONT (22:00)
[2023-06-15] MEDS: GLYCOPYRROLATE INJ (*SP) 0.2 MG/ML VIAL 0.1 MG IV PUSH ×4 (03:19→20:05)
[2023-06-15] MEDS: PROCHLORPERAZINE EDISYLATE 10 MG/2 ML VIAL IV PUSH (06:08)
[2023-06-15] MEDS: DEXAMETHASONE SOD PHOS INJ 4 MG/ML VIAL IV PUSH ×2 (09:03→21:51)
[2023-06-15] MEDS: LORazepam INJ (*CRX) 2 MG/ML VIAL 1 MG IV PUSH ×3 (09:12→20:05)
[2023-06-15 09:24] VITALS: BP 77/57; PULSE 134; RESP 12; TEMP 36.9; O2SAT 89
[2023-06-15 15:20] VITALS: RESP 4
--- NOTE | 2023-06-15 16:01 | PM.IMPN ---
Progress Note: A&P Assessment and Plan (1) Palliative care encounter: Code(s): Z51.5 - Encounter for palliative care Status: Acute Assessment and Plan: Meets inpatient hospice criteria due to requiring continuous IV hydromorphone 0.25mg/hr for pain and scheduled IV antiemetics for nausea with emesis IV dexamethasone, prn IV promethazine, prn IV lorazepam, prn IV glycopyrrolate (if needed for secretions gut motility will likely not be germane) Consider somatostatin if refractory diarrhea persists (though impaired motility may be the underlying culprit if paraneoplastic) 06/12/2023: Increased hydromorphone to 0.5 mg/hr, changed prochlorperazine to 10mg IV AC and HS 06/13/2023: Increased hydromorphone to 1 mg/hr again due to uncontrolled pain 06/14/2023: Continue current regimen. Discussed with family at bedside. (2) Lung cancer: Code(s): C34.90 - Malignant neoplasm of unspecified part of unspecified bronchus or lung Status: Acute Assessment and Plan: NSCLC per chart (3) Nausea and vomiting in adult: Code(s): R11.2 - Nausea with vomiting, unspecified Status: Acute (4) COPD (chronic obstructive pulmonary disease): Code(s): J44.9 - Chronic obstructive pulmonary disease, unspecified Status: Acute (5) Diarrhea: Code(s): R19.7 - Diarrhea, unspecified Status: Acute Assessment and Plan: Possible paraneoplastic syndrome (6) Moderate protein-calorie malnutrition: Code(s): E44.0 - Moderate protein-calorie malnutrition Status: Acute Subjective Date/time seen: 06/15/23 16:01 Interval history: Quiet night. Remains comfortable on hydromorphone drip. Review of Systems Review of Systems: ROS unobtainable: Yes unobtainable due to medical condition Exam Narrative: Chronically ill-appearing, gaunt elderly female appears older than stated age of 73 with diffuse muscle wasting. Sclerae nonicteric. Pharyngeal mucosa dry. Neck without thyromegaly or JVD or adenopathy. Chest breath sounds coarse with scattered crackles and nonlabored respirations. Heart normal S1 and S2 with rate regular and no audible murmurs. Abdomen scaphoid soft no palpable masses nontender with bowel sounds present. Extremities mild nonpitting edema of ankles and feet. Musculoskeletal with diffuse muscle wasting. No gross deformities to visual inspection. Neurologic cranial nerves 3-12 intact and symmetric to visual inspection. Diffuse and symmetric 3 to 4/5 weakness. Psychiatric unresponsive to verbal and tactile stimuli Objective Data Vital Signs Vital Signs: Vital Signs - 24 hr 06/14/23 17:41 06/14/23 22:00 06/14/23 20:00 Temperature 98.0 F Pulse Rate 109 H 104 H 91 Respiratory Rate 14 16 Blood Pressure 93/57 L Pulse Oximetry 95 Oxygen Delivery 06/15/23 09:24 06/15/23 08:00 06/15/23 15:20 Temperature 98.4 F Pulse Rate 134 H Respiratory Rate 12 4 L Blood Pressure 77/57 L Pulse Oximetry 89 L Oxygen Delivery Room Air Intake/Output Intake/Output: Intake & Output 06/12/23 06/13/23 06/14/23 06/15/23 23:59 23:59 23:59 23:59 Intake Total 780 450 75 0 Output Total 100 1300 900 Balance 680 342 -2367 -900 Meds/Results Medications: Active Medications Generic Name Dose Route Start Last Admin Trade Name Freq PRN Reason Stop Dose Admin Artificial Tears 0 drop 06/11/23 15:50 Artificial Tears Ophth Soln 15 Ml Bottle EACH EYE Q12H PRN Dry Eye(s) Bisacodyl 10 mg 06/11/23 15:50 Bisacodyl 10 Mg Suppository RECTAL DAILY PRN Constipation Dexamethasone Sodium Phosphate 4 mg 06/11/23 21:00 06/15/23 09:03 Dexamethasone Sod Phos Inj 4 Mg/Ml Vial IV PUSH 4 mg Q12HR MARIELENA Administration Glycopyrrolate 0.1 mg 06/11/23 15:50 06/15/23 14:57 Glycopyrrolate Inj (*Sp) 0.2 Mg/Ml Vial IV PUSH 0.1 mg Q4H PRN Administration secretions Hydromorphone HCl 2 mg 06/14/23 16:22
[2023-06-15 17:33] VITALS: BP 79/57; PULSE 118; RESP 4; TEMP 36.4; O2SAT 96
[2023-06-15 18:17] VITALS: O2SAT 96
[2023-06-15 18:45] VITALS: O2SAT 94
[2023-06-15 20:00] VITALS: BP 70/50; PULSE 123; PULSE 125; RESP 3; RESP 8; TEMP 36.9; O2SAT 94
[2023-06-15] MEDS: HYDROmorphone HCL/PF (*CRX) 50 MG in SODIUM CHLORIDE 0.9% IV 95 ML IV CONT (20:00)
[2023-06-16] MEDS: LORazepam INJ (*CRX) 2 MG/ML VIAL 1 MG IV PUSH ×2 (01:25→06:40)
[2023-06-16] MEDS: GLYCOPYRROLATE INJ (*SP) 0.2 MG/ML VIAL 0.1 MG IV PUSH ×2 (01:29→06:31)
--- NOTE | 2023-06-16 16:39 | PM.DDS ---
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 Medications titrated to comfort. Mrs. Howard peacefully. Additional Data Confirmation of as documented by pronouncing clinician: Pupillary Reflex, Palpable Pulses, Response to Stimuli, Heart Tones and Breath Sounds Name of Provider Notified: BRAYAN @ [id number], Dr. Jaime Time Provider Notified: 08:22 Absorption Plant Operator Notified: Yes Date [facility] Notified of : 06/16/23 Time [facility] Notified of : 08:35
== END 2023-06-16 07:45 | disposition expired | DRG 951 ==
PROVIDERS: Admitting Provider Internal Medicine; PCP Family Medicine; Visit Provider Internal Medicine
DX: Z51.5 Encounter for palliative care (principal); C34.90 Malignant neoplasm of unspecified part of unspecified bronchus or lung; E44.0 Moderate protein-calorie malnutrition; Z68.1 Body mass index [BMI] 19.9 or less, adult; I10 Essential (primary) hypertension; J44.9 Chronic obstructive pulmonary disease, unspecified; Z92.3 Personal history of irradiation; Z92.21 Personal history of antineoplastic chemotherapy; Z87.891 Personal history of nicotine dependence
CPT/HCPCS: A9270; J0780; J1100; J1170; J2060; J2550